=== PATIENT | male | born 1970 | race Caucasian/White ===

== ENCOUNTER 2022-05-31 19:06 | Inpatient (IN) ==
[2022-05-31] MEDS ORDERED: OPTIRAY 300 500mL IV ONE (19:22)
--- NOTE | 2022-05-31 19:30 | Emergency Department Note ---
Impression & Plan Acute CVA (cerebrovascular accident), Vertigo ED Provider Note NAME: ELIZABETH MORRISSEY AGE: 52 SEX: M : 1970 ARRIVES VIA: Ambulance INFORMANT: Patient, EMS ED PROVIDER(S): Boby Warren DO CHIEF COMPLAINT: Strokelike symptoms HPI: The patient is a 52-year-old male who presented to the emergency department for an evaluation of strokelike symptoms. The patient had an acute onset of symptoms which included dizziness nausea and difficulty ambulating. The patient felt that he was having blurry vision and some double vision. He also has an occipital headache. This began after he was lifting to propane canisters. He denies having any chest pain. He denies having any difficulty breathing. The patient does not have any history of stroke in the past. He has no history of hypertension or atrial fibrillation. The patient has had no recent traveling. He denies having any recent trauma. He does not take any anticoagulants. The patient called 911 because the onset of symptoms. The patient was made a stroke alert prior to arrival after discussion with the prehospital personnel. ROS: See above HPI for pertinent positives & negatives. A total of 10 systems reviewed and were otherwise negative. PAST MEDICAL HISTORY: See Below PAST SURGICAL HISTORY: See Below FAMILY HISTORY: See Below SOCIAL HISTORY: See Below HOME MEDICATIONS: See Below ALLERGIES: See Below VITALS: See Below PHYSICAL EXAMINATION: GENERAL: The patient is awake and alert. He is somewhat anxious appearing. EYES: The conjunctivae are injected bilaterally. The pupils are round and reactive. Nystagmus was noted in both horizontal directions. EARS, NOSE, MOUTH AND THROAT: The nose is without any evidence of any deformity. Mucous membranes are moist. Tongue is midline. NECK: The neck is nontender and supple. RESPIRATORY: Normal respiratory effort is noted there is no evidence of wheezing rhonchi or rales CARDIOVASCULAR: Regular rate and rhythm noted there no murmurs rubs or gallops normal S1 normal S2. GASTROINTESTINAL: The abdomen is soft. Abdomen is nontender. MUSCULOSKELETAL/EXTREMITIES: There is no evidence of gross deformity full range of motion is noted in the hips and shoulders. SKIN: There is no obvious evidence of any rash. There are no petechiae, pallor or cyanosis noted. NEUROLOGIC: Patient is awake alert and oriented x3 strength is symmetric patellar reflexes are 2+ bilaterally MEDICAL DECISION MAKING: Patient is a 52-year-old male who presented to the emergency department for an evaluation of strokelike symptoms. The patient was made a stroke alert prior to arrival after a prehospital notification. The patient described episodes of vertigo. He was very off balance. He had very significant symptoms. The patient had CT and CT angiography of the brain and neck in the emergency department. The patient was evaluated by the [facility] neurologist at [facility]. Given the complex nature of the presentation of a posterior circulation stroke the [facility] neurologist felt the patient would be a candidate for thrombolytics given his physical exam and his description of his symptoms. He did have a slight headache which began with the same symptoms that he presented to the emergency department for. He was treated for the headache in the emergency department. He was treated with thrombolytics in the emergency department. He was reevaluated multiple times. The patient did consent to thrombolytics and the risks and benefits of thrombolytics were discussed with the patient via the telestroke neurologist as well as myself. I discussed the patient's condition with the on-call [facility] hospitalist. They have agreed to evaluate the patient in the emergency department for further managem ent and disposition. Triage Nursing notes reviewed. Prior medical records reviewed Vital Signs: reviewed and remarkable for elevated blood pressure. Differential diagnosis: Infection, dehydration, metabolic abnormality, hypo/hyperglycemia, electrolyte disturbance, anemia, hypoxia, cardiac sources, intracerebral event, toxicologic, neurologic, as well as other pathologies. ER treatment provided: See below Diagnostics interpreted by me: ECG: EKG was obtained in the emergency department. My interpretation is sinus bradycardia 59 bpm. There is no ectopy. There is no acute ST segment abnormalities noted. Cardiac Monitoring: An order was placed for continuous cardiac monitoring. The monitor shows a rate of 64 bpm with sinus rhythm. Laboratory studies: As stated above and show below. Imaging studies: See below Consultation(s): I discussed this case with Dr. Hewitt who is on for the [facility] neurology yogi up at [facility]. I discussed this case with Dr. Rangel [facility] ED COURSE: Procedures: none Critical Care: I have personally spent greater than 45 minutes of critical care time in the direct management of this patient. This includes bedside care, interpretation of diagnostic studies, and testing, discussion with consultants, patient, and fa radha members, and other required patient management activities. This 45 minutes is in excess of all separately billable procedures. 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 Safe at Home: Yes Safety Concerns: Feels Safe At This Time caffeine: Yes Dental Care, Regularly: Yes Physical Activity Frequency: 3-4 Times per Week Seatbelt Use: always Sunscreen Use: Yes Assistive Devices: None Allergies Allergies Allergy/AdvReac Type Severity Reaction Status Date / Time No Known Allergies Allergy Verified 10/25/19 09:05 Home Meds Home Medications Medication Instructions Recorded Confirmed No Known Home Medications 05/31/22 05/31/22 Results & Data (ED) Vital Signs Vital Signs - 24 hr 05/31/22 19:25 05/31/22 19:30 05/31/22 20:00 Temperature 36.6 C 36.6 C Temperature Source Temporal Artery Scan Oral Pulse Rate 52 L Pulse Rate [Right Finger] 57 L 54 L Pulse Rhythm [Right Finger] Regular Pulse Strength [Right Finger] Normal Respiratory Rate 20 20 20 Respiratory Effort / Characteristics Non-Labored Spontaneous Respiratory Depth Normal Respiratory Pattern Regular Blood Pressure 141/84 H Blood Pressure [Right Arm] 141/84 H 124/87 Blood Pressure Mean 103 Blood Pressure Mean [Right Arm] 103 99 Blood Pressure Position Sitting Blood Pressure Position [Right Arm] Sitting Sitting Pulse Oximetry 98 98 99 Oxygen Delivery Method Room Air Room Air Room Air Sepsis Recent Fever Within 48 Hours No Sepsis New/Unexplained Change in Mental Status N/A Sepsis Action Taken by Nursing No Action Required 05/31/22 20:15 Temperature 36.5 C Temperature Source Oral Pulse Rate Pulse Rate [Right Finger] 61 Pulse Rhythm [Right Finger] Pulse Strength [Right Finger] Respiratory Rate 20 Respiratory Effort / Characteristics Non-Labored Respiratory Depth Normal Respiratory Pattern Blood Pressure Blood Pressure [Right Arm] 139/88 Blood Pressure Mean Blood Pressure Mean [Right Arm] 105 Blood Pressure Position Blood Pressure Position [Right Arm] Lying Pulse Oximetry 98 Oxygen Delivery Method Room Air Sepsis Recent Fever Within 48 Hours Sepsis New/Unexplained Change in Mental Status Sepsis Action Taken by [facility]pc Medications Current Medication List: was personally reviewed by me Laboratory Data Attestation: I reviewed the patient's lab results. Result diagrams: 06/01/22 06:01 06/01/22 06:01 Lab Results 05/31/22 05/31/22 05/31/22 Range/Units 19:20 19:20 19:20 WBC 8.93 (4.8-10.8) K/ul RBC 5.50 (4.63-6.08) M/uL Hgb 16.9 (14.0-18.0) g/dl Hct 47.6 (40.1-51.0) % MCV 86.5 (80.0-100.0) fL MCH 30.7 (25.0-34.0) pg MCHC 35.5 (32.0-36.0) g/dL RDW Std Deviation 38.7 (36.4-46.3) fL RDW Coeff of Stewart 12.4 (11.5-14.5) % Plt Count 213 (130-400) K/uL MPV 10.9 (9.4-12.4) fL Immature Gran % (Auto) 0.6 % Neut % (Auto) 70.2 % Lymph % (Auto) 19.4 % [place] % (Auto) 7.6 % Eos % (Auto) 1.9 % Baso % (Auto) 0.3 % Neut # (Auto) 6.27 (1.4-6.5) K/uL Lymph # (Auto) 1.73 (1.2-3.4) K/uL [place] # (Auto) 0.68 (0.24-0.82) K/uL Eos # (Auto) 0.17 (0-0.50) K/uL Baso # (Auto) 0.03 (0-0.2) K/uL Immature Gran # (Auto) 0.05 H (0.00-0.02) K/uL PT 11.2 (9.0-12.0) Seconds INR 1.1 (0.9-1.1) APTT 23.8 (21.0-31.0) Seconds PTT Ratio 0.9 Sodium 138 (136-145) mmol/L Potassium 3.9 (3.5-5.1) mmol/L Chloride 100 (98-107) mmol/L Carbon Dioxide 25 (21-32) mmol/L Anion Gap 13 H (3-11) BUN 18 (6-23) mg/dl Creatinine 1.12 (0.6-1.4) mg/dl Est Cr Clr Drug Dosing 94.5 ml/min Est GFR ( Amer) 87.1 ml/min Est GFR (Non-Af Amer) 75.1 ml/min BUN/Creatinine Ratio 16.1 (10-20) Glucose 100 H (70-99(Fasting)) mg/dl Calcium 9.3 (8.5-10.1) mg/dl Magnesium 1.9 (1.7-2.4) mg/dl Total Bilirubin 0.7 (0.2-1.0) mg/dl AST 14 (13-39) U/L ALT 23 (7-52) U/L Alkaline Phosphatase 62 (34-104) U/L Troponin I High Sens < 2.3 (0-20) pg/ml Total Protein 7.0 (6.0-8.3) gm/dl Albumin 4.3 (3.4-5.0) gm/dl Globulin 2.7 (2.5-4.0) gm/dl Albumin/Globulin Ratio 1.6 (0.9-2) SARS-CoV-2, RNA, NAAT (NEGATIVE) 05/31/22 Range/Units 19:32 WBC (4.8-10.8) K/ul RBC (4.63-6.08) M/uL Hgb (14.0-18.0) g/dl Hct (40.1-51.0) % MCV (80.0-100.0) fL MCH (25.0-34.0) pg MCHC (32.0-36.0) g/dL RDW Std Deviation (36.4-46.3) fL RDW Coeff of Stewart (11.5-14.5) % Plt Count (130-400) K/uL MPV (9.4-12.4) fL Immature Gran % (Auto) % Neut % (Auto) % Lymph % (Auto) % [place] % (Auto) % Eos % (Auto) % Baso % (Auto) % Neut # (Auto) (1.4-6.5) K/uL Lymph # (Auto) (1.2-3.4) K/uL [place] # (Auto) (0.24-0.82) K/uL Eos # (Auto) (0-0.50) K/uL Baso # (Auto) (0-0.2) K/uL Immature Gran # (Auto) (0.00-0.02) K/uL PT (9.0-12.0) Seconds INR (0.9-1.1) APTT (21.0-31.0) Seconds PTT Ratio Sodium (136-145) mmol/L Potassium (3.5-5.1) mmol/L Chloride (98-107) mmol/L Carbon Dioxide (21-32) mmol/L Anion Gap (3-11) BUN (6-23) mg/dl Creatinine (0.6-1.4) mg/dl Est Cr Clr Drug Dosing ml/min Est GFR ( Amer) ml/min Est GFR (Non-Af Amer) ml/min BUN/Creatinine Ratio (10-20) Glucose (70-99(Fasting)) mg/dl Calcium (8.5-10.1) mg/dl Magnesium (1.7-2.4) mg/dl Total Bilirubin (0.2-1.0) mg/dl AST (13-39) U/L ALT (7-52) U/L Alkaline Phosphatase (34-104) U/L Troponin I High Sens (0-20) pg/ml Total Protein (6.0-8.3) gm/dl Albumin (3.4-5.0) gm/dl Globulin (2.5-4.0) gm/dl Albumin/Globulin Ratio (0.9-2) SARS-CoV-2, RNA, NAAT NEGATIVE (NEGATIVE) Administered Medications Ondansetron HCl (Ondansetron Inj 2 Mg/Ml 2 Ml Vial) 4 mg IV Q6H DARIO Stop: 06/30/22 22:06 Last Admin: 06/01/22 05:08 Dose: 4 mg Documented By: Admin: 05/31/22 23:18 Dose: 4 mg Documented By: SELENE Discontinued Medications Fentanyl Citrate (Fentanyl Citrate 100 Mcg/2 Ml Vial) 50 mcg IV NOW STA Stop: 05/31/22 20:35 Last Admin: 05/31/22 23:13 Dose: Not Given Documented By: SELENE Tenecteplase 25 mg/ Syringe 5 mls @ 60 mls/min IV NOW ONE; Protocol Stop: 05/31/22 19:53 Last Admin: 05/31/22 20:00 Dose: 60 mls/min Documented By: SHARAN Co-signed By: ALEX Ioversol (Optiray 300 500ml) 120 ml IV ONCE ONE Stop: 05/31/22 19:23 Last Admin: 05/31/22 19:23 Dose: 120 ml Documented By: GHULAM Miscellaneous (Stat Iv) 1 each N/A NOW STA Stop: 05/31/22 19:43 Last Admin: 05/31/22 23:13 Dose: Not Given Documented By: SELENE Ondansetron HCl (Ondansetron Inj 2 Mg/Ml 2 Ml Vial) 4 mg IV NOW STA Stop: 05/31/22 20:35 Last Admin: 05/31/22 20:45 Dose: 4 mg Documented By: SHARAN Sodium Chloride (Sodium Chloride 0.9% 10ml Flush) 20 ml IV NOW STA Stop: 05/31/22 19:43 Last Admin: 05/31/22 20:00 Dose: 20 ml Documented By: SHARAN Imaging Data Attestation: I personally reviewed and interpreted this imaging study as follow s: My Impression: 1 view chest x-ray was obtained in the emergency department. My interpretation is no free air, no definite filtrate, heart size was normal, no acute disease. Radiologist's Impression: Chest X-Ray 05/31/22 18:56 XR chest 1V portable CLINICAL HISTORY: Stroke Like Symptoms COMPARISON STUDY: No previous studies for comparison. FINDINGS: Lung volumes are normal. Lungs are clear. There is no pneumothorax or pleural effusion. Cardiac size is normal. Mediastinal contours are normal. There is no evidence for pulmonary edema. Slight interstitial prominence is likely within normal limits. IMPRESSION: No acute cardiopulmonary findings. ACT 112: Negative or not required by law. Electronically signed by: Meliton Kyle M.D. 06/01/2022 7:40 AM Discharge Plan Visit Data Chief Complaint: Stroke Alert ED Provider: Boby Warren Discharge Problem: Acute CVA (cerebrovascular accident), Vertigo Patient Disposition: Admitted As Inpatient Discharge Instructions Interventions: ED Discharge Assessment Last Done: 05/31/22 21:13
--- NOTE | 2022-05-31 19:40 | CT Scan Report ---
UNENHANCED CT OF THE BRAIN; CT ANGIOGRAM OF THE BRAIN; CT ANGIOGRAM OF THE NECK CLINICAL HISTORY: Strokelike symptoms. COMPARISON STUDY: No priors. TECHNIQUE: Unenhanced axial CT scan of the brain is performed. Subsequently, following the IV adminis tration of 120 of Optiray 300, CT angiogram of the head and neck was performed from the aortic arch t o the vertex. Images are reviewed in the axial, sagittal, and coronal planes. 3-D MIPS images are cre ated and assessed. IV contrast was administered without complication. All measurements were calculate d based on NASCET criteria. A dose lowering technique was utilized adhering to the principles of ALA RA. CT DOSE: 1242.22 mGy.cm FINDINGS: Brain parenchyma: The brain parenchyma is normal in appearance. There is no hemorrhage, mass effect, or evidence of acute territorial ischemia by CT criteria. There is no evidence of enhancing mass lesi on on the angiogram phase images. The ventricles, sulci, and cisterns are normal in configuration. Gr ay-white matter differentiation is preserved. No extra-axial fluid collection is seen. Thoracic aorta: Visualized portions of the thoracic aorta are normal in caliber. The aortic arch demo nstrates standard 3-vessel anatomy. Right carotid arterial system: The right common carotid artery is widely patent, as are the right int ernal and external carotid arteries. Left carotid arterial system: The left common carotid artery is widely patent, as are the left internist medical doctor md al and external carotid arteries. Vertebral arteries: The vertebral arteries are widely patent bilaterally and codominant. Subclavian arteries: Widely patent bilaterally. Intracranial vasculature: The internal carotid arteries are patent at the skull base, as are the ante rior and middle cerebral arteries bilaterally. The vertebrobasilar system and posterior cerebral lucie kvng are widely patent. The vertebral arteries are codominant. There is no aneurysm, high-grade steno sis, or focal vessel cut off seen throughout the intracranial circulation. Jugular veins: Patent bilaterally. Dural sinuses: Patent. Lung apices: Partially visualized upper lobe lung parenchyma appears clear. Soft tissues: The visualized pharyngeal soft tissues are normal in appearance noting angiographic pha se technique. The oropharyngeal airway appears widely patent. The salivary and thyroid glands are nor mal in appearance. No cervical lymphadenopathy is seen. Skeletal structures: The calvarium appears intact. The cervical spine is maintained noting mild spond ylosis. No lytic or blastic lesion is seen. Orbits: The bony orbits are intact. Orbital contents are normal as visualized. Sinuses and mastoids: There is trace mucosal thickening right maxillary antrum. The remaining paranas al sinuses are clear. The mastoid air cells are well pneumatized. IMPRESSION: 1. There is no hemorrhage, mass effect, or evidence of acute territorial ischemia by CT criteria. 2. Unremarkable CT angiogram of the brain. 3. Unremarkable CT angiogram of the neck. ACT 112: Negative or not required by law. Electronically signed by: Norberto Wilson M.D. 05/31/2022 7:37 PM
[2022-05-31] MEDS ORDERED: STAT IV STA (19:42)
[2022-05-31] MEDS ORDERED: SODIUM CHLORIDE 0.9% 10ML FLUSH IV STA (19:42)
[2022-05-31 19:45] LABS: Basophils # (auto) 0.03 K/uL (0-0.2); Basophils % (auto) 0.3 %; Eosinophils # (auto) 0.17 K/uL (0-0.50); Eosinophils % (auto) 1.9 %; Hematocrit (blood only) 47.6 % (40.1-51.0); Hemoglobin 16.9 g/dl (14.0-18.0); Immature Granulocytes # (auto) 0.05 K/uL (0.00-0.02); Immature Granulocytes % (auto) 0.6 %; Lymphocytes # (auto) 1.73 K/uL (1.2-3.4); Lymphocytes % (auto) 19.4 %; Mean Corpuscular Hemoglobin 30.7 pg (25.0-34.0); Mean Corpuscular Hgb Conc 35.5 g/dL (32.0-36.0); Mean Corpuscular Volume 86.5 fL (80.0-100.0); Mean Platelet Volume 10.9 fL (9.4-12.4); Monocytes # (auto) 0.68 K/uL (0.24-0.82); Monocytes % (auto) 7.6 %; Neutrophils # (auto) 6.27 K/uL (1.4-6.5); Neutrophils % (auto) 70.2 %; Platelet Count 213 K/uL (130-400); RDW Coefficient of Variation 12.4 % (11.5-14.5); RDW Standard Deviation 38.7 fL (36.4-46.3); White Blood Count 8.93 K/ul (4.8-10.8)
[2022-05-31] MEDS ORDERED: No Aspirin within 24hrs of THROMBOLYTIC-Stroke PO SCH (19:45)
[2022-05-31] MEDS ORDERED: TENECTEPLASE 25 MG in SYRINGE 0 ML IV ONE (19:52)
[2022-05-31 19:58] LABS: INR 1.1 (0.9-1.1); Partial Thromboplastin Ratio 0.9; Partial Thromboplastin Time 23.8 Seconds (21.0-31.0); Prothrombin Time 11.2 Seconds (9.0-12.0)
[2022-05-31 20:04] LABS: Alanine Aminotransferase 23 U/L (7-52); Albumin Globulin Ratio 1.6 (0.9-2); Albumin Level 4.3 gm/dl (3.4-5.0); Alkaline Phosphatase 62 U/L (34-104); Anion Gap 13 (3-11); Aspartate Aminotransferase 14 U/L (13-39); BUN Creatinine Ratio 16.1 (10-20); Bilirubin,Total 0.7 mg/dl (0.2-1.0); Blood Urea Nitrogen 18 mg/dl (6-23); Calcium 9.3 mg/dl (8.5-10.1); Carbon Dioxide 25 mmol/L (21-32); Chloride 100 mmol/L (98-107); Creatinine Clr Calc Pharmacy 94.5 ml/min; Est GFR (African American) 87.1 ml/min; Est GFR (Non-African American) 75.1 ml/min; Globulin 2.7 gm/dl (2.5-4.0); Glucose 100 mg/dl (70-99(Fasting)); Magnesium 1.9 mg/dl (1.7-2.4); Potassium 3.9 mmol/L (3.5-5.1); Sodium 138 mmol/L (136-145)
[2022-05-31 20:10] LABS: Troponin I High Sensitivity < 2.3 pg/ml (0-20)
[2022-05-31] MEDS ORDERED: ICU PROTOCOL FOR HYPERGLYCEMIA PRN (20:28)
--- NOTE | 2022-05-31 20:28 | History & Physical Report ---
Date of Service May 31, 2022 Assessment & Plan (1) Stroke-like symptoms: Plan: This is a 52-year-old male with a history of palpitations who presents to [facility] for evaluation of acute-onset anterior R LOMAS (posterior to R eye), vertigo, ambulatory dysfunction, nausea, and distal upper extremity paraesthesias following lifting propane tanks at around ~1730, concerning for neurologic process like posterior CVA vs. complicated migraine. He received TNKase in the ED at 2000. Stroke-like Symptoms - Per patient/family: acute-onset anterior R headache (posterior to R eye), vertigo, ambulatory dysfunction, nausea, and distal upper extremity paraesthesias following lifting propane tanks at around ~1730 - Stroke Alert called: s/p receipt of TNKase in the ED at approx. 1999 - CTA-Head/Neck: No evidence of acute insult or angiographically detectable disease - DDX: At this time, cannot definitively rule-out posterior circulation CVA; however, wonder if his symptoms may also represent complicated/complex migraine; lower suspicion for intraocular, C-spine related process - Admit to ICU for neurovascular monitoring and stroke protocol - Maintain BP < 180/105 post-TNK --> PRN Labetalol on-call for elevations beyond this - Obtain MRI tomorrow AM - Check TTE, lipids, A1c - PT/OT/TOOL CRIB LEAD consulted - Consider initiation of antiplatelet and lipid-lowering RX after 24 hours if stroke seems most likely - Consider hypercoagulability/inflammatory studies if stroke seems most likely - Pain: Tylenol 1000mg - if evolves, re-evaluate to determine if patient would most benefit from typical analgesia or migraine-specific - Nausea: Zofran CODE: Full DIET: NPO until dysphagia screening, then regular PPX: Pharmacologic prophylaxis contraindicated at this time DISPO: ICU for post-TNKase monitoring History of Present Illness Primary Care Provider: Teetee Llamas MD This is a 52-year-old male with a history of palpitations who presents to [facility] for evaluation of vision changes, ambultory dysfunction, nausea, and headache. History is primarily obtained through patient's , and patient contributes intermittently. Sometime between 1730 and 1800, patient's symptoms reportedly started; at around 1800, patient reportedly stumbled into the home setting that he did not feel well, and complained of dizziness, right- sided headache, and nausea. According to his , he also demonstrated some neglect about his surroundings (for instance, he was leaning on his for support, while also asking where she was and reaching out into the distance). Patient says that he was lifting propane tanks when he felt a sudden pop on the right side of his head/upper neck, and felt a sharp stinging begin just posterior to his right eye. He said that he intermittently develop vision changes thereafter, which included diplopia and dizziness aforementioned. He al so notes that he developed numbness and tingling at his bilateral fingertips. He says that this popping sensation has happened in the past and has been associated with lightheadedness ("like when you get up too fast "), but nothing like this. Given concerns for stroke, he was brought to the emergency room for immediate evaluation, where stroke alert was called. At the time my evaluation, patient says most of his discomfort is still posterior to his right eye. He says that he continues to have some numbness and tingling at his bilateral fingertips, but not elsewhere. Dizziness is mostly go ne away, but nausea has persisted. He did vomit several times in the emergency room. 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 He reports smoking 2 packs of cigarettes each weekend since the age of 22 (~9 pack-years) alongside 1 bottle of whiskey each weekend; he does not drink during the week and has not had an alcoholic beverage for over a week and a half. He denies any use of any recreational drugs or substances. Regarding his family history, he does report multiple heart attacks and strokes on both sides; however, he does not remember exactly who right now. He does not think anybody had strokes under the age of 60, but again is not sure. He denies any known history of clotting. Regarding his history of palpitations, he reports a several day stent several months back where he felt like his heart was racing. He reportedly have a Holter monitor, which was normal. In the ED, patient was found to have normal vital signs. Laboratories were significant for normal CBC, normal coag studies, BMP showing BUN 18/creatinine 1.12, anion gap 13, COVID-negative. Head and neck imaging demonstrated no hemorrhage, mass-effect, ischemic changes; angiography not revealing of appreciable disease. ECG demonstrated normal sinus rhythm without any conduction or repolarization abnormalities. In the ED, stroke alert was called; based on review of his symptoms, TNK was given. ---- This documentation was created utilizing dictation software. As such, syntax, grammatical, and word-choice errors may be present. Notes are screened prior to submission in an attempt to reduce these errors. If there are any questions or concerns, please contact the author directly for clarification. Allergies Allergy/AdvReac Type Severity Reaction Status Date / Time No Known Allergies Allergy Verified 10/25/19 09:05 Home Medications Medication Instructions Recorded Confirmed Type No Known Home Medications 05/31/22 05/31/22 History Past Med/Surg History Surgical History No history of previous surgery Family History Grandfather Myocardial infarction Grandmother Colon cancer Uncle Abdominal aortic aneurysm Denies family history of Ovarian cancer Prostate cancer Breast cancer Social History Smoking Status: Light tobacco smoker Hx Alcohol Use: Yes Alcohol type: hard liquor Hx Substance Use: No Preferred Language: Palauan Communication Ability: Effective Beliefs That Will Affect Care: None marital status: Current Living Situation: Family 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 HEENT: NCAT. - Eyes - Sclera are white, anicteric; very slight injection in his R eye - Mouth - MMM - Neck - supple, no appreciable JVD Cardiac: Normal rate and regular rhythm; S1 and S2 present with no murmurs, rubs, or gallops. Pulmonary: Good respiratory effort with symmetric expansion of the chest. No use of accessory muscles. Lungs were clear to auscultation bilaterally with no crackles or wheezes. Abdominal: Normoactive bowel sounds. Abdomen was soft, nondistended, and non- tender to palpation. Neuro: - Cranial Nerves: CN I, IX, XIII, and X - not assessed. II - PERRL, although some injection is appreciated in the R eye. III/IV/ - EOMs WNL. No nystagmus. V - Facial sensation in tact in all three divisions; jaw opening WNL. VII - Patient is able to smile symmetrically and keep eyes close against resistance. IX - Soft palate raises equally and appropriately while saying "ah." XI - Patient is able to shrug shoulders against resistance. XII - patient is able to stick out tongue and deviate from emza-ly-[id number] appropriately. - Motor: UE - Finger, wrist, elbow, and shoulder strength is 5/5 bilaterally. LE - Hip, knee, and ankle strength is 5/5 bilaterally. - Sensation: UE and LE sensation to light touch is grossly intact bilaterally. - Ameebm-is-giod: WNL b/l. No dysmetria. Extremities: Upper and lower extremities are warm and well perfused. No peripheral edema in the lower extremities bilaterally Psych: Well-developed, well-nourished, appropriately dressed for occasion. Behavior is cooperative and appropriate. Affect is WNL. Insight is appropriate. Results & Data Results & Data ([facility]) Vital Signs (Past 12 Hours) Vital Signs Temp Pulse Pulse Resp BP BP Pulse Ox 05/31/22 20:15 36.5 C 61 20 139/88 98 05/31/22 20:00 36.6 C 54 L 20 124/87 99 05/31/22 19:30 57 L 20 141/84 H 98 05/31/22 19:25 36.6 C 52 L 20 141/84 H 98 O2 Del Method 05/31/22 20:15 Room Air 05/31/22 20:00 Room Air 05/31/22 19:30 Room Air 05/31/22 19:25 Room Air Supervising Physician Co-Signing Physician Notes Patient seen and examined, chart reviewed, case discussed with Dr. Ibarra and I agree with the assessment and plan as above. In brief, patient is a 52yo male with no significant past medical history presenting with acute onset vertigo, posterior headache, nausea. Patient presented as a Code Stroke to the ER and was given Tenecteplase 25mg at 20:00. Patient presently with improved headache. Still with vertigo worsened by movement. Had a brief episode of visual disturbance and spacial disorientation upon arrival to the MICU - stated that he felt as though he was laying on his right side and that his body was turning the right. Also felt that everything that he saw was crooked, rotated appx 90 degrees to include sideways door and slanted floor - possibly consistent with midline visual shift syndrome. Resolved after appx 10-15 minutes. On exam he is afebrile, HD stable, blood pressure 141/86 at present Skin - intact, no rashes/lesions HEENT- NC/AT, PERRL, MMM, Neck supple Heart - +S1/S2, regular, no m/r/g Lungs - CTA Abd - +BS, soft, NT/ND Ext - warm, well perfused, no clubbing/cyanosis or edema Neuro - patient is AA&O x 4, pleasant, conversive, able to answer questions and participate in exam, speech is clear and appropriate, no facial droop. CN grossly intact, no nystagmus, visual harris full to confrontation on bedside exam, sensation intact, MS 5/5 with no drift, gait not assessed. Labs and images reviewed Assessment/Plan 52yo male presenting with acute onset LOMAS, visual disturbance, nausea and vertigo following a "popping" sensation in posterior head. Patient administered tenecteplase in the ER as a Code Stroke at 20:00. Workup unremarkable thus far to include normal CT head and normal CTA -Admit to MICU for post-tPA care -BP management -Neuro checks and GCS per protocol -MRI -Repeat CT head at 24 hours post-tPA -Neuro consultation appreciated -Remainder as above Resident Activity Tracking Resident Involvement: Resident Care Provided Care Provided: [facility]
[2022-05-31] MEDS ORDERED: fentaNYL citrate 100 MCG/2 ML VIAL IV STA (20:34)
[2022-05-31] MEDS ORDERED: ONDANSETRON INJ 2 MG/ML 2 ML VIAL IV STA (20:34)
[2022-05-31] MEDS ORDERED: ACETAMINOPHEN 500 MG TAB PO PRN (22:07)
[2022-05-31] MEDS ORDERED: LABETALOL HCL IV 5 MG/ML 20ML IV PRN (22:07)
[2022-05-31] MEDS ORDERED: PHARMACIST DISCHARGE MED REC CONSULT PRN (22:07)
--- NOTE | 2022-05-31 23:02 | Critical Care Consultation ---
Date of Consultation May 31, 2022 Assessment & Plan (1) Acute CVA (cerebrovascular accident): Impression: 52-year-old male presents to the ICU with visual changes and strokelike symptoms, now s/p TNKase administration and currently admitted to ICU for 24-hour monitoring. Neuro - Acute CVA?Patient with neurological symptoms as described and HPI/exam. CT head Wo contrast and CTA head and neck unremarkable -Cannot rule out posterior CVA at this time versus complex migraine -MRI pending -TNKase administered per telestroke recommendation at 1800. Follow-up CT head at 24 hours. Monitor in ICU per protocol -Follow-up echo, A1c, lipid panel -Zofran as needed for nausea -Follow-up neurology recommendations concerning ASA/Plavix Cardiac - No cardiac history. Currently hemodynamically stable. Will allow permissive hypertension. Continuous monitoring on telemetry Respiratory - No history of pulmonary disease. Patient does smoke 2 packs/day per history. Encourage cessation. Maintain ox saturation on room air. Continuous monitoring pulse ox GI - N.p.o. RENAL/LYTES - Creatinine within normal limits, monitor routine BMPs replete electrolytes as indicated - Strict I's and O's ENDO - No history of diabetes or thyroid disease, ICU hyperglycemic protocol HEME - H&H stable, monitor for signs of bleeding. Routine CBC ID - No indication for mesh process at this time. Trend fever curve LINES/IV ACCESS - Peripheral IVs DVT PROPHYLAXIS - SCDs, hold anticoagulation in the setting of TNKase administration Thank you for allowing us to participate in the care of this patient. Please refer to my attending physician's documentation for any further recommendations. (2) Vertigo: (3) Stroke-like symptoms: History of Present Illness Attending Physician: Manuela Rangel DO History of Present Illness Patient is a 52-year-old male history of GERD, palpitations, tobacco use (2 PPD) who presents to the emergency department earlier this evening with visual changes, headache, nausea, and ambulatory dysfunction. Around 1800 patient complained of dizziness and right-sided posterior headache associated with nausea. Patient stated that he felt a pop while lifting propane tanks on the right posterior side of his head/upper neck and felt a sting behind his right eye. Patient developed diplopia and dizziness right after this. He underwent CT head without contrast and CTA head and neck which were negative for acute findings. Patient was evaluated by telestroke and decision was made to proceed with TNKase at 1999. Patient now being admitted to ICU for further management at this time per 24-hour tPA protocol. On arrival to the ICU the patient is alert and oriented. Patient states that he is still experiencing a dull throbbing headache on the right posterior and pressure behind his right eye. He also states that his vision is flipped 180 degrees. He denies any current nausea or dizziness. He denies other neurological symptoms. He currently denies any previous fevers, illness, congestion or sore throat, cough, chest pain, palpitations, shortness of breath, abdominal pain, vomiting or diarrhea. Allergies Allergy/AdvReac Type Severity Reaction Status Date / Time No Known Allergies Allergy Verified 10/25/19 09:05 Home Medications Medication Instructions Recorded Confirmed Type No Known Home Medications 05/31/22 05/31/22 History Patient History Surgical History No history of previous surgery Family History Grandfather Myocardial infarction Grandmother Colon cancer Uncle Abdominal aortic aneurysm Denies family history of Ovarian cancer Prostate cancer Breast cancer Social History Smoking Status: Light tobacco smoker Hx Alcohol Use: Yes Alcohol type: hard liquor Hx Substance Use: No Preferred Language: Occitan Communication Ability: Effective Beliefs That Will Affect Care: None marital status: Current Living Situation: Family 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 Safe at Home: Yes Safety Concerns: Feels Safe At This Time caffeine: Yes Dental Care, Regularly: Yes Physical Activity Frequency: 3-4 Times per Week Seatbelt Use: always Sunscreen Use: Yes Assistive Devices: None Review of Systems Review of Systems: All systems reviewed & are unremarkable except as noted in HPI & below Physical Exam Constitutional: WD/WN, vitals as above Eyes: Nystagmus, PERRLA ENMT: external ear and nose normal, oropharynx normal Neck: trachea midline, no thyromegaly Respiratory: normal respiratory effort, lungs clear to auscultation Cardiovascular: RRR, no murmur, no edema Heart Sounds: normal S1 and normal S2; no murmur Gastrointestinal (Abdomen): normal bowel sounds, soft, nontender, no hepatosplenomegaly Musculoskeletal: no cyanosis or clubbing, extremities motor strength 5/5 Skin: no rashes, warm and dry Neurologic: PERRL, EOMI, accommodation nl, no face palsy, no dysarthria normal touch/pain/proprioception and moves all extremities Speech / Cognition: no expressive aphasia and no receptive aphasia Motor/Sensory: no pronator drift Cranial Nerves: PERRL and EOM intact bilaterally; + nystagmus Psychiatric: A+Ox3, euthymic affect Results & Data Results & Data ([facility] [place]) Vital Signs (Past 12 Hours) Vital Signs Temp Pulse Pulse Resp BP BP Pulse Ox 05/31/22 22:00 56 L 14 148/97 H 100 05/31/22 23:00 67 20 148/90 H 97 05/31/22 22:30 64 18 151/98 H 97 05/31/22 21:45 54 L 22 144/96 H 96 05/31/22 21:30 36.5 C 59 L 22 140/96 99 05/31/22 21:30 36.5 C 59 L 22 140/96 99 05/31/22 21:15 36.6 C 52 L 20 143/89 H 99 05/31/22 21:00 36.5 C 53 L 22 139/95 96 05/31/22 20:45 36.5 C 58 L 20 146/95 H 99 05/31/22 20:30 36.5 C 55 L 18 144/97 H 100 05/31/22 20:15 36.5 C 61 20 139/88 98 05/31/22 20:00 36.6 C 54 L 20 124/87 99 05/31/22 19:30 57 L 20 141/84 H 98 05/31/22 19:25 36.6 C 52 L 20 141/84 H 98 O2 Del Method O2 Flow Rate 05/31/22 22:00 Nasal Cannula 2 05/31/22 23:00 Nasal Cannula 2 05/31/22 22:30 Nasal Cannula 2 05/31/22 21:45 Room Air 05/31/22 21:30 Room Air 05/31/22 21:30 Room Air 05/31/22 21:15 Room Air 05/31/22 21:00 Room Air 05/31/22 20:45 Room Air 05/31/22 20:30 Room Air 05/31/22 20:15 Room Air 05/31/22 20:00 Room Air 05/31/22 19:30 Room Air 05/31/22 19:25 Room Air Coding Level of Care Code 87367 Inpt Consult Level 3 Diagnoses Acute CVA (cerebrovascular accident) I63.9 Vertigo R42 Stroke-like symptoms R29.90
[2022-05-31] MEDS: ONDANSETRON INJ 2 MG/ML 2 ML VIAL IV SCH (23:18)
[2022-06-01] MEDS: ONDANSETRON INJ 2 MG/ML 2 ML VIAL IV SCH ×4 (05:08→21:20)
[2022-06-01 06:39] LABS: Basophils # (auto) 0.02 K/uL (0-0.2); Basophils % (auto) 0.3 %; Eosinophils # (auto) 0.02 K/uL (0-0.50); Eosinophils % (auto) 0.3 %; Hematocrit (blood only) 47.1 % (40.1-51.0); Hemoglobin 16.6 g/dl (14.0-18.0); Immature Granulocytes # (auto) 0.02 K/uL (0.00-0.02); Immature Granulocytes % (auto) 0.3 %; Lymphocytes # (auto) 1.55 K/uL (1.2-3.4); Mean Corpuscular Hemoglobin 30.6 pg (25.0-34.0); Mean Corpuscular Hgb Conc 35.2 g/dL (32.0-36.0); Mean Corpuscular Volume 86.9 fL (80.0-100.0); Mean Platelet Volume 11.4 fL (9.4-12.4); Monocytes # (auto) 0.64 K/uL (0.24-0.82); Monocytes % (auto) 9.1 %; Neutrophils # (auto) 4.81 K/uL (1.4-6.5); Platelet Count 201 K/uL (130-400); RDW Coefficient of Variation 12.8 % (11.5-14.5); RDW Standard Deviation 40.3 fL (36.4-46.3); Red Blood Count 5.42 M/uL (4.63-6.08); White Blood Count 7.06 K/ul (4.8-10.8)
[2022-06-01 07:28] LABS: Albumin Level 4.3 gm/dl (3.4-5.0); Bilirubin Direct 0.2 mg/dl (0-0.2); Bilirubin,Total 0.8 mg/dl (0.2-1.0); Calcium 9.2 mg/dl (8.5-10.1); Chol HDL Ratio 3.1 (0-5); Magnesium 2.3 mg/dl (1.7-2.4); Phosphorus 4.8 mg/dl (2.5-4.9); Potassium 4.7 mmol/L (3.5-5.1); Total Protein 7.2 gm/dl (6.0-8.3)
--- NOTE | 2022-06-01 07:41 | XRay Report ---
XR chest 1V portable CLINICAL HISTORY: Stroke Like Symptoms COMPARISON STUDY: No previous studies for comparison. FINDINGS: Lung volumes are normal. Lungs are clear. There is no pneumothorax or pleural effusion. Car diac size is normal. Mediastinal contours are normal. There is no evidence for pulmonary edema. Sligh t interstitial prominence is likely within normal limits. IMPRESSION: No acute cardiopulmonary findings. ACT 112: Negative or not required by law. Electronically signed by: Meliton Kyle M.D. 06/01/2022 7:40 AM
[2022-06-01 07:43] LABS: Creatinine Clr Calc Pharmacy 96.8 ml/min; Est GFR (Non-African American) 79.4 ml/min
[2022-06-01 08:32] LABS: Estimated Average Glucose 105 mg/dl; Hemoglobin A1C 5.3 % (4.5-5.6)
--- NOTE | 2022-06-01 08:53 | Magnetic Resonance Report ---
MRI OF THE BRAIN WITHOUT CONTRAST CLINICAL HISTORY: acute CVA s/p TNKase COMPARISON STUDY: Head CT and CTA of the head May 31, 2022. TECHNIQUE: Utilizing a 1.5 Beata magnet and dedicated coil, multiplanar, multiecho imaging of the bra in was performed without IV contrast. FINDINGS: Note is made of a 4.3 x 2.3 cm focus of restricted diffusion within the inferomedial aspect of the right cerebellar hemisphere. This represents an acute infarct. No hemorrhage or significant m ass effect is present. Cytotoxic edema is noted. No additional foci of acute infarction are present. Ventricular system is normal. Basal cisterns are patent. There are no extra-axial collections. Flow-v oids for the major intracranial vessels are present. Calvarial signal is within normal limits. There is no evidence for sinusitis. There is no mastoid fluid. No intracranial masses are identified on thi s unenhanced exam. IMPRESSION: Acute infarct within the inferomedial right cerebellar hemisphere, measuring 4.3 x 2.3 c m. This is within the right posterior inferior cerebellar artery distribution. No hemorrhage. No sign ificant mass effect at this time. ACT 112: Negative or not required by law. Electronically signed by: Meliton Kyle M.D. 06/01/2022 8:51 AM
--- NOTE | 2022-06-01 08:54 | Hospitalist Progress Note ---
Date of Service June 01, 2022 Assessment & Plan (1) Stroke-like symptoms: Plan: This is a 52-year-old male with a history of palpitations who presents to [facility] for evaluation of acute-onset anterior R LOMAS (posterior to R eye), vertigo, ambulatory dysfunction, nausea, and distal upper extremity paraesthesias following lifting propane tanks at around ~1730, concerning for neurologic process like posterior CVA vs. complicated migraine. He received TNKase in the ED at 2000. CVA - Per patient/family: acute-onset anterior R headache (posterior to R eye), vertigo, ambulatory dysfunction, nausea, and distal upper extremity paraesthesias following lifting propane tanks at around ~1730 - Stroke Alert called: s/p receipt of TNKase in the ED at approx. 2000 - CTA-Head/Neck: No evidence of acute insult or angiographically detectable disease - Admit to ICU for neurovascular monitoring and stroke protocol - Maintain BP < 180/105 post-TNK --> PRN Labetalol on-call for elevations beyond this - MRI brain: 4.3 x 2.3 cm focus of restricted diffusion within the inferomedial aspect of the right cerebellar hemisphere representing an acute infarct. No hemorrhage or mass-effect observed. - TTE: EF of 60 to 65%. No hypokinesis or wall motion abnormalities. - Lipid panel: LDL cholesterol 92, up from 81 a year prior. Total [id number]. - Hemoglobin A1c: 5.3. - Coagulation labs negative for coagulopathy * Complete 24 hours monitoring post TNKase * Initiate secondary prevention after 24 hours: DAPT x21 to 90 days. * Additional secondary prevention: atorvastatin 80 mg, losartan 25 mg * Smoking cessationpatient already amenable. CODE: Full DIET: Regular diet PPX: Pharmacologic prophylaxis contraindicated at this time DISPO: ICU for post-TNKase monitoring Admission and Anticipated Discharge Date Admission Date: May 31, 2022 Supervising Physician Co-Signing Physician Notes I personally examined the patient and verified all mi points of history and exam, discussed case, and agree with decision making with Dr Morrison Generally feeling better. Vision improving, has not really been up and out of bed yet, but does not notice feeling off balance at least at rest. Discussed lifestyle extensivelyit sounds like he is fairly active throughout the day, gets exercise walking his dog, gets more sedentary in the winter. Eating habits are not the best. Has already decided he is a former smokerdoes not believe that quitting will be a difficulty. Vitals noted, in general he is awake and alert pleasant no distress. HEENT normocephalic atraumatic mucous membranes moist. Breathing unlabored no accessory muscle use good effort. Skin shows no rashes no pallor or icterus. Neuro as above. Cerebellar strokemost likely atherosclerotic given his risks of male, age, family history, tobacco abuseand relative risks with his LDL, and possibly blood pressure, as well as "softer" risks of lifestyle and obesity with BMI of 30.4. That said, central embolic difficult to rule out and agree with neurology for outpatient cardiac monitoring for completeness. Med management, lifestyle change, secondary risk reduction. Otherwise as above Subjective Overnight, vision was "flipped upside down" but that resolved by the morning. Today, he reports a dull, constant infraorbital ache on the right, a similar headache at the occiput, also on the right. Otherwise, he denies dizziness, shortness of breath, chest tightness, visual disturbances, weakness, or paresthesias. Review of Systems Review of Systems: All systems reviewed & are unremarkable except as noted in HPI & below Physical Exam Physical Exam: General: Well-appearing, alert, interactive, and in no acute distress. HEENT: Normocephalic, atraumatic. EOM intact. Good conjugate gaze. Nares patent. Moist mucosal membranes. Neck: Supple. No lymphadenopathy. Normal ROM. CV: Regular rate and rhythm. Normal S1 and S2. No murmurs gallops or rubs. Respiratory: Normal respiratory effort. Lungs clear to auscultation bilaterally. No crackles, rhonchi, or wheezes. Abdomen: Soft, mildly distended abdomen. No bruits heard on auscultation. No tenderness to deep palpation. Some suprapubic discomfort noted. Extremities: Capillary refill <2 sec. 2+ dp equal bilaterally. No pedal edema. Neuro: Alert and oriented x3. Cranial nerves II through XII intact. No focal motor or sensory deficit appreciated. Skin: Clean, dry, and intact. No rashes, bruises, or erythema. Results & Data Results & Data ([facility]) Vital Signs (Past 12 Hours) Vital Signs Temp Pulse Resp BP Pulse Ox O2 Del Method O2 Flow Rate 06/01/22 08:00 36.5 C 75 16 136/75 98 Room Air 06/01/22 06:00 63 16 131/91 97 Nasal Cannula 2 06/01/22 05:00 67 16 137/92 98 Nasal Cannula 2 06/01/22 04:01 36.5 C 66 16 127/84 98 Nasal Cannula 2 06/01/22 03:30 65 16 130/87 99 Nasal Cannula 2 06/01/22 03:00 66 18 140/88 98 Nasal Cannula 2 06/01/22 02:30 64 16 137/84 98 Nasal Cannula 2 06/01/22 02:00 70 16 141/86 H 97 Nasal Cannula 2 06/01/22 01:30 69 16 136/88 98 06/01/22 01:00 64 16 125/84 98 Nasal Cannula 2 06/01/22 00:30 60 16 144/89 H 98 Nasal Cannula 2 06/01/22 00:00 36.7 C 60 16 144/95 H 97 Nasal Cannula 2 05/31/22 23:30 72 16 148/95 H 98 Nasal Cannula 2 05/31/22 22:00 56 L 14 148/97 H 100 Nasal Cannula 2 05/31/22 23:00 67 20 148/90 H 97 Nasal Cannula 2 05/31/22 22:30 64 18 151/98 H 97 Nasal Cannula 2 05/31/22 21:45 54 L 22 144/96 H 96 Room Air 05/31/22 21:30 36.5 C 59 L 22 140/96 99 Room Air 05/31/22 21:30 36.5 C 59 L 22 140/96 99 Room Air 05/31/22 21:15 36.6 C 52 L 20 143/89 H 99 Room Air 05/31/22 21:00 36.5 C 53 L 22 139/95 96 Room Air 05/31/22 20:45 36.5 C 58 L 20 146/95 H 99 Room Air Resident Activity Tracking Resident Involvement: Resident Care Provided Care Provided: Adult Hospital Medicine
--- NOTE | 2022-06-01 09:29 | Critical Care Progress Note ---
Date of Service June 01, 2022 Assessment & Plan (1) Acute CVA (cerebrovascular accident): Plan: Impression: 52-year-old male presents to the ICU with visual changes and strokelike symptoms, now s/p TNKase administration and currently admitted to ICU for 24-hour monitoring. Neuro - Acute CVAPatient with neurological symptoms as described and HPI/exam. CT head Wo contrast and CTA head and neck unremarkable -MRI reviewed -TNKase administered per telestroke recommendation at 1800. Follow-up CT head at 24 hours. Monitor in ICU per protocol -Echo reviewed, -Zofran as needed for nausea -ASA at 24 hours, Plavix deferred at this time - Close observation for cerebellar mass-effect Cardiac - No cardiac history. Currently hemodynamically stable. Respiratory - No history of pulmonary disease. Patient does smoke 2 packs/day per history. Encourage cessation. GI - N.p.o. RENAL/LYTES - Creatinine within normal limits, monitor routine BMPs replete electrolytes as indicated - Strict I's and O's ENDO - No history of diabetes or thyroid disease, ICU hyperglycemic protocol HEME - H&H stable, monitor for signs of bleeding. Routine CBC LINES/IV ACCESS - Peripheral IVs DVT PROPHYLAXIS - SCDs, hold anticoagulation until 24 hours out Stable for downgrade out of ICU at 24 hours post TNKase administration. (2) Vertigo: (3) Stroke-like symptoms: Admission and Anticipated Discharge Date Admission Date: May 31, 2022 Subjective No significant complaints. Vision has resolved headache has also resolved. Patient reports he feels a little dizzy when rapidly turning his head to the right. Not withstanding his complaints have all resolved per report. Review of Systems Review of Systems: Denies chest pain, denies shortness of breath, denies headache Physical Exam Physical Exam: General: Alert. nontoxic. Skin: Warm, dry, Head: Atraumatic Ears, nose, mouth and throat: airway patent Cardiovascular: Normal peripheral perfusion Respiratory: no respiratory distress Gastrointestinal: Non distended Musculoskeletal: No deformity Neuro: Normal [id number], normal heel mclaughlin Results & Data Results & Data ([facility]) Vital Signs (Past 12 Hours) Vital Signs Temp Pulse Resp BP Pulse Ox O2 Del Method O2 Flow Rate 06/01/22 09:00 63 16 135/89 96 Room Air 06/01/22 08:00 36.5 C 75 16 136/75 98 Room Air 06/01/22 06:00 63 16 131/91 97 Nasal Cannula 2 06/01/22 05:00 67 16 137/92 98 Nasal Cannula 2 06/01/22 04:01 36.5 C 66 16 127/84 98 Nasal Cannula 2 06/01/22 03:30 65 16 130/87 99 Nasal Cannula 2 06/01/22 03:00 66 18 140/88 98 Nasal Cannula 2 06/01/22 02:30 64 16 137/84 98 Nasal Cannula 2 06/01/22 02:00 70 16 141/86 H 97 Nasal Cannula 2 06/01/22 01:30 69 16 136/88 98 06/01/22 01:00 64 16 125/84 98 Nasal Cannula 2 06/01/22 00:30 60 16 144/89 H 98 Nasal Cannula 2 06/01/22 00:00 36.7 C 60 16 144/95 H 97 Nasal Cannula 2 05/31/22 23:30 72 16 148/95 H 98 Nasal Cannula 2 05/31/22 22:00 56 L 14 148/97 H 100 Nasal Cannula 2 05/31/22 23:00 67 20 148/90 H 97 Nasal Cannula 2 05/31/22 22:30 64 18 151/98 H 97 Nasal Cannula 2 05/31/22 21:45 54 L 22 144/96 H 96 Room Air 05/31/22 21:30 36.5 C 59 L 22 140/96 99 Room Air 05/31/22 21:30 36.5 C 59 L 22 140/96 99 Room Air Critical Care Results & Data Vital Signs (Past 12 Hours) Vital Signs Temp Pulse Resp BP Pulse Ox O2 Del Method O2 Flow Rate 06/01/22 15:00 61 16 140/90 95 Room Air 06/01/22 14:00 68 18 137/90 96 Room Air 06/01/22 13:00 76 16 132/90 96 Room Air 06/01/22 12:00 77 16 151/96 H 96 Room Air 06/01/22 11:00 68 16 147/93 H 94 Room Air 06/01/22 10:00 63 16 139/92 95 Room Air 06/01/22 09:00 63 16 135/89 96 Room Air 06/01/22 08:00 36.5 C 75 16 136/75 98 Room Air 06/01/22 06:00 63 16 131/91 97 Nasal Cannula 2 06/01/22 05:00 67 16 137/92 98 Nasal Cannula 2 06/01/22 04:01 36.5 C 66 16 127/84 98 Nasal Cannula 2 06/01/22 03:30 65 16 130/87 99 Nasal Cannula 2 Lab & Micro Results (Past 24 Hours) RBC 5.42 M/uL (4.63-6.08) 06/01/22 WBC 7.06 K/ul (4.8-10.8) 06/01/22 Hgb 16.6 g/dl (14.0-18.0) 06/01/22 Hct 47.1 % (40.1-51.0) 06/01/22 MCV 86.9 fL (80.0-100.0) 06/01/22 MCH 30.6 pg (25.0-34.0) 06/01/22 MCHC 35.2 g/dL (32.0-36.0) 06/01/22 RDW Standard Deviation 40.3 fL (36.4-46.3) 06/01/22 RDW Coefficient of Variation 12.8 % (11.5-14.5) 06/01/22 Plt Count 201 K/uL (130-400) 06/01/22 MPV 11.4 fL (9.4-12.4) 06/01/22 Neutrophils (%) (Auto) 68.0 % 06/01/22 Lymphocytes (%) (Auto) 22.0 % 06/01/22 Monocytes # (Auto) 0.64 K/uL (0.24-0.82) 06/01/22 Eosinophils # (Auto) 0.02 K/uL (0-0.50) 06/01/22 Immature Granulocyte % (Auto) 0.3 % 06/01/22 Neutrophils # (Auto) 4.81 K/uL (1.4-6.5) 06/01/22 Lymphocytes # (Auto) 1.55 K/uL (1.2-3.4) 06/01/22 Monocytes # (Auto) 0.64 K/uL (0.24-0.82) 06/01/22 Eosinophils # (Auto) 0.02 K/uL (0-0.50) 06/01/22 Basophils # (Auto) 0.02 K/uL (0-0.2) 06/01/22 Immature Granulocyte # (Auto) 0.02 K/uL (0.00-0.02) 2 Na 138 mmol/L (136-145) 06/01/22 K 4.7 mmol/L (3.5-5.1) 06/01/22 Cl 105 mmol/L (98-107) 06/01/22 CO2 25 mmol/L (21-32) 06/01/22 Anion Gap 8 (3-11) 06/01/22 BUN 16 mg/dl (6-23) 06/01/22 Creatinine 1.07 mg/dl (0.6-1.4) 06/01/22 Estimated GFR ( Amer) 92.0 ml/min 06/01/22 Estimated GFR (Non-Af Amer) 79.4 ml/min 06/01/22 BUN/Creatinine Ratio 15.0 (10-20) 06/01/22 Glu 97 mg/dl (70-99(Fasting)) 06/01/22 Ca 9.2 mg/dl (8.5-10.1) 06/01/22 Phosphorus Level 4.8 mg/dl (2.5-4.9) 06/01/22 Total Bilirubin 0.8 mg/dl (0.2-1.0) 06/01/22 Direct Bilirubin 0.2 mg/dl (0-0.2) 06/01/22 AST 15 U/L (13-39) 06/01/22 ALT 22 U/L (7-52) 06/01/22 Alkaline Phosphatase 64 U/L (34-104) 06/01/22 TP 7.2 gm/dl (6.0-8.3) 06/01/22 Albumin 4.3 gm/dl (3.4-5.0) 06/01/22 Globulin 2.7 gm/dl (2.5-4.0) 05/31/22 Albumin/Globulin Ratio 1.6 (0.9-2) 05/31/22 Mg 2.3 mg/dl (1.7-2.4) 06/01/22 06:01 Calcium Level 9.2 mg/dl (8.5-10.1) 06/01/22 06:01 Prothromb Time International Ratio 1.1 (0.9-1.1) 05/31/22 19:2 0 Diagnostic Findings (Past 24 Hours) Chest X-Ray 05/31/22 18:56 XR chest 1V portable CLINICAL HISTORY: Stroke Like Symptoms COMPARISON STUDY: No previous studies for comparison. FINDINGS: Lung volumes are normal. Lungs are clear. There is no pneumothorax or pleural effusion. Cardiac size is normal. Mediastinal contours are normal. There is no evidence for pulmonary edema. Slight interstitial prominence is likely within normal limits. IMPRESSION: No acute cardiopulmonary findings. ACT 112: Negative or not required by law. Electronically signed by: Meliton Kyle M.D. 06/01/2022 7:[address] 05/31/22 18:[address] OF THE BRAIN; CT ANGIOGRAM OF THE BRAIN; CT ANGIOGRAM OF THE NECK CLINICAL HISTORY: Strokelike symptoms. COMPARISON STUDY: No priors. TECHNIQUE: Unenhanced axial CT scan of the brain is performed. Subsequently, following the IV administration of 120 of Optiray 300, CT angiogram of the head and neck was performed from the aortic arch to the vertex. Images are reviewed in the axial, sagittal, and coronal planes. 3-D MIPS images are created and assessed. IV contrast was administered without complication. All measurements were calculated based on NASCET criteria. A dose lowering technique was utilized adhering to the principles of ALARA. CT DOSE: 1242.22 mGy.cm FINDINGS: Brain parenchyma: The brain parenchyma is normal in appearance. There is no hemorrhage, mass effect, or evidence of acute territorial ischemia by CT criter ia. There is no evidence of enhancing mass lesion on the angiogram phase images. The ventricles, sulci, and cisterns are normal in configuration. Combs-white matter differentiation is preserved. No extra-axial fluid collection is seen. Thoracic aorta: Visualized portions of the thoracic aorta are normal in caliber. The aortic arch demonstrates standard 3-vessel anatomy. Right carotid arterial system: The right common carotid artery is widely patent, as are the right internal and external carotid arteries. Left carotid arterial system: The left common carotid artery is widely patent, as are the left internal and external carotid arteries. Vertebral arteries: The vertebral arteries are widely patent bilaterally and codominant. Subclavian arteries: Widely patent bilaterally. Intracranial vasculature: The internal carotid arteries are patent at the skull base, as are the anterior and middle cerebral arteries bilaterally. The vertebrobasilar system and posterior cerebral arteries are widely patent. The vertebral arteries are codominant. There is no aneurysm, high-grade stenosis, or focal vessel cut off seen throughout the intracranial circulation. Jugular veins: Patent bilaterally. Dural sinuses: Patent. Lung apices: Partially visualized upper lobe lung parenchyma appears clear. Soft tissues: The visualized pharyngeal soft tissues are normal in appearance noting angiographic phase technique. The oropharyngeal airway appears widely patent. The salivary and thyroid glands are normal in appearance. No cervical lymphadenopathy is seen. Skeletal structures: The calvarium appears intact. The cervical spine is maintained noting mild spondylosis. No lytic or blastic lesion is seen. Orbits: The bony orbits are intact. Orbital contents are normal as visualized. Sinuses and mastoids: There is trace mucosal thickening right maxillary antrum. The remaining paranasal sinuses are clear. The mastoid air cells are well pneumatized. IMPRESSION: 1. There is no hemorrhage, mass effect, or evidence of acute territorial ischemia by CT criteria. 2. Unremarkable CT angiogram of the brain. 3. Unremarkable CT angiogram of the neck. ACT 112: Negative or not required by law. Electronically signed by: Norberto Wilson M.D. 05/31/2022 7:37 PM Head CTA 05/31/22 18:[address] OF THE BRAIN; CT ANGIOGRAM OF THE BRAIN; CT ANGIOGRAM OF THE NECK CLINICAL HISTORY: Strokelike symptoms. COMPARISON STUDY: No priors. TECHNIQUE: Unenhanced axial CT scan of the brain is performed. Subsequently, following the IV administration of 120 of Optiray 300, CT angiogram of the head and neck was performed from the aortic arch to the vertex. Images are reviewed in the axial, sagittal, and coronal planes. 3-D MIPS images are created and assessed. IV contrast was administered without complication. All measurements were calculated based on NASCET criteria. A dose lowering technique was utilized adhering to the principles of ALARA. CT DOSE: 1242.22 mGy.cm FINDINGS: Brain parenchyma: The brain parenchyma is normal in appearance. There is no hemorrhage, mass effect, or evidence of acute territorial ischemia by CT criteria. There is no evidence of enhancing mass lesion on the angiogram phase images. The ventricles, sulci, and cisterns are normal in configuration. Combs- white matter differentiation is preserved. No extra-axial fluid collection is seen. Thoracic aorta: Visualized portions of the thoracic aorta are normal in caliber. The aortic arch demonstrates standard 3-vessel anatomy. Right carotid arterial system: The right common carotid artery is widely patent, as are the right internal and external carotid arteries. Left carotid arterial system: The left common carotid artery is widely patent, as are the left internal and external carotid arteries. Vertebral arteries: The vertebral arteries are widely patent bilaterally and codominant. Subclavian arteries: Widely patent bilaterally. Intracranial vasculature: The internal carotid arteries are patent at the skull base, as are the anterior and middle cerebral arteries bilaterally. The vertebrobasilar system and posterior cerebral arteries are widely patent. The vertebral arteries are codominant. There is no aneurysm, high-grade stenosis, or focal vessel cut off seen throughout the intracranial circulation. Jugular veins: Patent bilaterally. Dural sinuses: Patent. Lung apices: Partially visualized upper lobe lung parenchyma appears clear. Soft tissues: The visualized pharyngeal soft tissues are normal in appearance noting angiographic phase technique. The oropharyngeal airway appears widely patent. The salivary and thyroid glands are normal in appearance. No cervical lymphadenopathy is seen. Skeletal structures: The calvarium appears intact. The cervical spine is maintained noting mild spondylosis. No lytic or blastic lesion is seen. Orbits: The bony orbits are intact. Orbital contents are normal as visualized. Sinuses and mastoids: There is trace mucosal thickening right maxillary antrum. The remaining paranasal sinuses are clear. The mastoid air cells are well pneumatized. IMPRESSION: 1. There is no hemorrhage, mass effect, or evidence of acute territorial ischemia by CT criteria. 2. Unremarkable CT angiogram of the brain. 3. Unremarkable CT angiogram of the neck. ACT 112: Negative or not required by law. Electronically signed by: Norberto Wilson M.D. 05/31/2022 7:37 PM Neck CTA 05/31/22 18:[address] OF THE BRAIN; CT ANGIOGRAM OF THE BRAIN; CT ANGIOGRAM OF THE NECK CLINICAL HISTORY: Strokelike symptoms. COMPARISON STUDY: No priors. TECHNIQUE: Unenhanced axial CT scan of the brain is performed. Subsequently, following the IV administration of 120 of Optiray 300, CT angiogram of the head and neck was performed from the aortic arch to the vertex. Images are reviewed in the axial, sagittal, and coronal planes. 3-D MIPS images are created and assessed. IV contrast was administered without complication. All measurements were calculated based on NASCET criteria. A dose lowering technique was utilized adhering to the principles of ALARA. CT DOSE: 1242.22 mGy.cm FINDINGS: Brain parenchyma: The brain parenchyma is normal in appearance. There is no hemorrhage, mass effect, or evidence of acute territorial ischemia by CT criter ia. There is no evidence of enhancing mass lesion on the angiogram phase images. The ventricles, sulci, and cisterns are normal in configuration. Combs-white matter differentiation is preserved. No extra-axial fluid collection is seen. Thoracic aorta: Visualized portions of the thoracic aorta are normal in caliber. The aortic arch demonstrates standard 3-vessel anatomy. Right carotid arterial system: The right common carotid artery is widely patent, as are the right internal and external carotid arteries. Left carotid arterial system: The left common carotid artery is widely patent, as are the left internal and external carotid arteries. Vertebral arteries: The vertebral arteries are widely patent bilaterally and codominant. Subclavian arteries: Widely patent bilaterally. Intracranial vasculature: The internal carotid arteries are patent at the skull base, as are the anterior and middle cerebral arteries bilaterally. The vertebrobasilar system and posterior cerebral arteries are widely patent. The vertebral arteries are codominant. There is no aneurysm, high-grade stenosis, or focal vessel cut off seen throughout the intracranial circulation. Jugular veins: Patent bilaterally. Dural sinuses: Patent. Lung apices: Partially visualized upper lobe lung parenchyma appears clear. Soft tissues: The visualized pharyngeal soft tissues are normal in appearance noting angiographic phase technique. The oropharyngeal airway appears widely patent. The salivary and thyroid glands are normal in appearance. No cervical lymphadenopathy is seen. Skeletal structures: The calvarium appears intact. The cervical spine is maintained noting mild spondylosis. No lytic or blastic lesion is seen. Orbits: The bony orbits are intact. Orbital contents are normal as visualized. Sinuses and mastoids: There is trace mucosal thickening right maxillary antrum. The remaining paranasal sinuses are clear. The mastoid air cells are well pneumatized. IMPRESSION: 1. There is no hemorrhage, mass effect, or evidence of acute territorial ischemia by CT criteria. 2. Unremarkable CT angiogram of the brain. 3. Unremarkable CT angiogram of the neck. ACT 112: Negative or not required by law. Electronically signed by: Norberto Wilson M.D. 05/31/2022 7:37 PM Brain MRI 06/01/22 06:00 MRI OF THE BRAIN WITHOUT CONTRAST CLINICAL HISTORY: acute CVA s/p TNKase COMPARISON STUDY: Head CT and CTA of the head May 31, 2022. TECHNIQUE: Utilizing a 1.5 Beata magnet and dedicated coil, multiplanar, multiecho imaging of the brain was performed without IV contrast. FINDINGS: Note is made of a 4.3 x 2.3 cm focus of restricted diffusion within the inferomedial aspect of the right cerebellar hemisphere. This represents an acute infarct. No hemorrhage or significant mass effect is present. Cytotoxic edema is noted. No additional foci of acute infarction are present. Ventricular system is normal. Basal cisterns are patent. There are no extra-axial collections. Flow-voids for the major intracranial vessels are present. Calvarial signal is within normal limits. There is no evidence for sinusitis. There is no mastoid fluid. No intracranial masses are identified on this unenhanced exam. IMPRESSION: Acute infarct within the inferomedial right cerebellar hemisphere, measuring 4.3 x 2.3 cm. This is within the right posterior inferior cerebellar artery distribution. No hemorrhage. No significant mass effect at this time. ACT 112: Negative or not required by law. Electronically signed by: Meliton Kyle M.D. 06/01/2022 8:51 AM I & O Totals 24 Hours 05/31/22 06/01/22 06/02/22 06:59 06:59 06:59 Intake Total 350 / 350 Output Total 0 / 0 Balance 350 / 350 Cumulative 05/31/22 18:50 thru 06/01/22 14:00 Intake Total 350 Output Total 0 Balance 350 RT Ventilator Mngmt (Last Documented) Ventilator Ordered Settings Respiratory Rate 16 06/01/22 15:00 Ventilator - PT Measurements Respiratory Rate 16 Coding Level of Care Code 72365 Subseq Hosp Care Lvl 3 Diagnoses Acute CVA (cerebrovascular accident) I63.9 Vertigo R42 Stroke-like symptoms R29.90
--- NOTE | 2022-06-01 09:51 | XCELERA ---
[id number]
--- NOTE | 2022-06-01 09:57 | Electrocardiogram Report ---
Test Reason : Blood Pressure : / mmHG Vent. Rate : 059 BPM Atrial Rate : 059 BPM P-R Int : 158 ms QRS Dur : 094 ms QT Int : 440 ms P-R-T Axes : 037 014 015 degrees QTc Int : 435 ms Sinus bradycardia Otherwise normal ECG When compared with ECG of 22-JAN-2016 17:38, QT has lengthened Confirmed by Saroj Nice ([id number]) on 06/01/2022 9:57:28 AM Referred By: REFERRED SELF Confirmed By:Saroj Nice
[2022-06-01] MEDS ORDERED: ACETAMINOPHEN 500 MG TAB PO PRN (13:14)
--- NOTE | 2022-06-01 13:54 | Consultation Report ---
DATE OF SERVICE: 06/01/2022 REASON FOR CONSULTATION: Stroke. HISTORY OF PRESENT ILLNESS: The patient is a 52-year-old left-handed male with no significant past medical history. On this background, on the day of admission while lifting two 25-pound objects, he noted the acute onset of a dull headache in the right occipital and right supraorbital region, vertigo, a tendency to veer to the left, nausea and tingling in both hands. The patient notes that there was some transient double vision, in that two occasions while in the hospital, the environment tilted 180 degrees. Movement exacerbated his symptoms. He is feeling much improved this morning with some minor residual headache and no other neurologic symptoms. His CTA of the head and neck were noncontributory, and CT of the head was unremarkable. MRI of the brain shows an acute right posterior inferior cerebellar artery territory infarction. There is minimal, if any, mass effect. It measures 4.3 x 2.3 cm. No hemorrhage is noted within the distribution of the vessel. As the patient came in in an appropriate timeframe, he received Tenecteplase at 1999. His vitals were noted for mild hypertension with BP max of 151/96. Labs were notable for normal white count, platelet count, PT, PTT. Nonfasting glucose was 100. His LDL was 92 and SARS screen was negative. He has otherwise been well. He has no prior history of transient ischemic attack or stroke. He has not had any recent head or neck injury. He has never had any sudden blindness, double vision, slurred speech, unilateral weakness or numbness. He has not had any head or neck trauma. 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 He has no history of ND, cancer, rheumatic fever, DVT or PE. Multiple family members had heart disease and stroke, but none in a young age. No family history of clotting disorder. The patient reports that over the last year or so that he has been mildly hypertensive in the office, but was not placed on medication. He also smokes. His echocardiogram showed normal LV size and function, EF of 60%-65%, no wall motion abnormalities, no significant valve abnormalities. No left ventricular hypertrophy. No ASD, no right to left shunt following agitated saline. Left atrial size is normal and the great vessels are unremarkable. His baseline EKG showed sinus bradycardia, otherwise normal EKG. QT has lengthened. PAST MEDICAL HISTORY: As above. PAST SURGICAL HISTORY: None. SOCIAL HISTORY: Smokes 2 packs of cigarettes a week, drinks whiskey on the weekend, works at the [employer]. FAMILY HISTORY: ND, colon cancer, abdominal aortic aneurysm. REVIEW OF SYSTEMS: As per HPI. PHYSICAL EXAMINATION: Most recent vitals are 151/96, 77, 16, 36.5, O2 sat 96%. The patient is awake and alert. Speech and language are normal. Affect appropriate. He is oriented x3. Normal naming, repetitions and 3-step commands. No right/left confusion. His pupils are equal, round, and reactive to light. The optic nerves are difficult to visualize. Tucker were full without nystagmus and motility was normal. There may be some minor right ptosis. Face is symmetric. There is normal facial sensation. Tongue is midline. Speech is nondysarthric. There are no carotid bruits, no vertebral bruits. Radial pulses are palpably intact. Psoriatic changes are noted on his knees. There is no calf swelling or tenderness. Posterior tibial pulses are intact. Strength is full in the upper and lowers. There is no drift. There is normal rapid alternating movements. There is mild dysmetria in the right upper and right lower extremity. Reflexes are symmetric. Toes are downgoing. Sensation is intact to light touch, temperature and vibration bilaterally. Gait was not tested. IMPRESSION: Right posterior inferior cerebellar artery infarction without any extracranial or intracranial stenosis. The patient is improved compared to yesterday. PLAN: Repeat CT of the head at 24 hours per protocol. Because of PICA infarction/cerebellar infarction can cause edema, I would monitor carefully for signs and symptoms of increased intracranial pressuresuch as change in MS, N, V, headache. Similarly, if the CT of the head at 24 hours shows a marked increase in edema or mass effect, I would recommend transferring the patient to a tertiary care center. This transfer would occur for monitoring and potential craniotomy for evacuation of the right cerebellar hemisphere. At 24 hours, I would start aspirin. I would not at this point start Plavix, I would probably wait about 2 days to do that, making sure that the mass effect was not increasing and the patient did not need to have a surgical procedure. Smoking cessation is advised, reduction in the use of alcohol. Statin therapy with a goal LDL of 70 or less. No antihypertensives are needed at present, but if his blood pressure remains 130/90 or higher, he should be treated with an antihypertensive. I have ordered a hypercoagulable state workup. I would recommend a Zio patch as an outpatient. The patient should see us in followup post-discharge. Job ID: [id number] TIANNA
[2022-06-01] MEDS ORDERED: OLMESARTAN MEDOXOMIL 20 MG TAB PO SCH (14:00)
--- NOTE | 2022-06-01 18:15 | Billing Data ---
Date of Service June 01, 2022 Coding Level of Care Code 23490 Subseq Hosp Care Lvl 3
[2022-06-01] MEDS: ATORVASTATIN 40 MG TAB PO SCH (18:30)
--- NOTE | 2022-06-01 22:38 | CT Scan Report ---
CT head/brain wo con CLINICAL HISTORY: 24 hour post tPA Technique: Contiguous axial CT images of the head were acquired from the base of the skull to the vineet caty without intravenous contrast administration. Images were viewed in brain, subdural and bone [facility]. Automated dose lowering techniques and/or adjustment according to patient size were utilized for this exam. Comparison: Comparison is made to CT head 05/31/2022 and MRI brain 06/01/2022 Findings: Evolutionary changes in right cerebellar infarct, more conspicuous than on prior CT exam. No evidence of intracranial hemorrhage is seen. There is mild mass effect upon the fourth ventricle is with edith roximately 4 mm midline shift. Imaged portions of the paranasal sinuses and mastoid air cells are clear. The orbits appear normal. There are no acute fractures of the calvaria or scalp swelling. Impression: Interval evolutionary changes of right cerebellar infarct with mild edema and midline shift. No evide nce of hemorrhagic transformation. ACT 112: Negative or not required by law. Electronically signed by: Duane Velasco M.D. 06/01/2022 10:36 PM
[2022-06-02 06:08] LABS: Basophils # (auto) 0.04 K/uL (0-0.2); Basophils % (auto) 0.5 %; Eosinophils # (auto) 0.18 K/uL (0-0.50); Eosinophils % (auto) 2.3 %; Hematocrit (blood only) 47.8 % (40.1-51.0); Hemoglobin 16.6 g/dl (14.0-18.0); Immature Granulocytes # (auto) 0.02 K/uL (0.00-0.02); Immature Granulocytes % (auto) 0.3 %; Lymphocytes # (auto) 2.65 K/uL (1.2-3.4); Lymphocytes % (auto) 33.7 %; Mean Corpuscular Hemoglobin 30.4 pg (25.0-34.0); Mean Corpuscular Hgb Conc 34.7 g/dL (32.0-36.0); Mean Corpuscular Volume 87.5 fL (80.0-100.0); Mean Platelet Volume 11.1 fL (9.4-12.4); Monocytes # (auto) 0.74 K/uL (0.24-0.82); Monocytes % (auto) 9.4 %; Neutrophils # (auto) 4.23 K/uL (1.4-6.5); Neutrophils % (auto) 53.8 %; Platelet Count 227 K/uL (130-400); RDW Coefficient of Variation 12.8 % (11.5-14.5); RDW Standard Deviation 40.4 fL (36.4-46.3); Red Blood Count 5.46 M/uL (4.63-6.08); White Blood Count 7.86 K/ul (4.8-10.8)
[2022-06-02] MEDS: ONDANSETRON INJ 2 MG/ML 2 ML VIAL IV SCH ×2 (06:16→10:57)
[2022-06-02 06:45] LABS: Albumin Level 4.2 gm/dl (3.4-5.0); BUN Creatinine Ratio 18.6 (10-20); Bilirubin Direct 0.1 mg/dl (0-0.2); Bilirubin,Total 0.6 mg/dl (0.2-1.0); Calcium 8.9 mg/dl (8.5-10.1); Creatinine Clr Calc Pharmacy 101.6 ml/min; Est GFR (African American) 97.5 ml/min; Est GFR (Non-African American) 84.1 ml/min; Magnesium 2.1 mg/dl (1.7-2.4); Phosphorus 3.4 mg/dl (2.5-4.9); Potassium 3.9 mmol/L (3.5-5.1); Total Protein 6.9 gm/dl (6.0-8.3)
[2022-06-02] MEDS: ATORVASTATIN 40 MG TAB PO SCH (07:38)
[2022-06-02] MEDS ORDERED: OLMESARTAN MEDOXOMIL 20 MG TAB PO SCH (09:00)
--- NOTE | 2022-06-02 09:46 | Critical Care Progress Note ---
Date of Service June 02, 2022 Assessment & Plan (1) Acute CVA (cerebrovascular accident): Plan: Impression: 52-year-old male presents to the ICU with visual changes and strokelike symptoms, now s/p TNKase administration and currently admitted to ICU for 24-hour monitoring. Neuro - Acute CVAPatient with neurological symptoms as described and HPI/exam. CT head Wo contrast and CTA head and neck unremarkable -MRI reviewed -TNKase administered per telestroke recommendation at 1800. -Follow-up CT head pending, mild shift on previous CT. -Echo reviewed, -Zofran as needed for nausea -ASA 81mg daily , Plavix deferred at this time - Close observation for cerebellar mass-effect Cardiac - No cardiac history. Currently hemodynamically stable. Respiratory - No history of pulmonary disease. Patient does smoke 2 packs/day per history. Encourage cessation. GI - N.p.o. RENAL/LYTES - Creatinine within normal limits, monitor routine BMPs replete electrolytes as indicated - Strict I's and O's ENDO - No history of diabetes or thyroid disease, ICU hyperglycemic protocol HEME - H&H stable, monitor for signs of bleeding. Routine CBC LINES/IV ACCESS - Peripheral IVs DVT PROPHYLAXIS - SCDs, patient ambulatory status no indication for chemical prophylaxis D/W Neurology: concern for worsening edema, d/w [facility] for possible transfer D/W [facility] [place] [facility], Neurology, CCM: Donald. Donald accepting in transfer for concern of herniation syndrome should cytotoxic edema continue to increase. (2) Vertigo: (3) Stroke-like symptoms: Admission and Anticipated Discharge Date Admission Date: May 31, 2022 Supervising Physician Co-Signing Physician Notes I have personally spent 50 minutes of critical care time in the direct management of this patient. This is a life/limb threatening event. This includes time spent evaluating patient, direct bedside care, chart review, placing orders, interpretation of diagnostic studies, discussion with consultants, patient, and/or family members regarding treatment decisions, as well as other required patient management activities. This time is exclusive of all separately billable procedures, and teaching time and separate from and in addition to any other critical care service time. Subjective No significant plaints. Denies chest pain mild head pressure no kandy headache. No dizziness no palpitations Review of Systems Review of Systems: As per the HPI Physical Exam Physical Exam: General: Alert. nontoxic. Skin: Warm, dry, Head: Atraumatic Ears, nose, mouth and throat: airway patent Cardiovascular: Normal peripheral perfusion Respiratory: no respiratory distress Gastrointestinal: Non distended Musculoskeletal: No deformity Neuro: Normal [id number], normal heel mclaughlin Results & Data Results & Data ([facility]) Vital Signs (Past 12 Hours) Vital Signs Temp Pulse Resp BP Pulse Ox O2 Del Method 06/02/22 06:00 55 L 16 121/86 92 Room Air 06/02/22 05:00 61 16 121/78 93 Room Air 06/02/22 04:00 37.1 C 62 18 123/72 93 Room Air 06/02/22 03:00 59 L 16 120/73 93 Room Air 06/02/22 02:00 56 L 16 116/66 93 Room Air 06/02/22 01:00 61 15 122/87 95 Room Air 06/02/22 00:00 36.8 C 60 16 118/82 94 Room Air 06/01/22 23:00 63 16 125/88 95 Room Air 06/01/22 22:00 61 16 134/95 94 Room Air Critical Care Results & Data Vital Signs (Past 12 Hours) Vital Signs Temp Pulse Pulse Resp BP BP Pulse Ox 06/02/22 12:00 70 33 H 94 06/02/22 12:00 126/88 06/02/22 11:00 64 21 98 06/02/22 11:00 143/94 H 06/02/22 10:49 69 16 95 06/02/22 10:49 132/89 06/02/22 10:03 154/101 H 06/02/22 10:03 68 20 91 06/02/22 10:02 69 15 97 06/02/22 12:00 68 06/02/22 09:30 68 18 88 L 06/02/22 09:00 76 21 95 06/02/22 09:00 130/85 06/02/22 08:30 66 21 92 06/02/22 08:00 70 16 95 06/02/22 08:00 135/92 06/02/22 07:45 72 17 94 06/02/22 07:45 136/93 06/02/22 07:30 71 16 94 06/02/22 07:00 55 L 16 94 06/02/22 07:00 131/91 06/02/22 06:48 73 27 H 96 06/02/22 06:00 55 L 16 121/86 92 06/02/22 05:00 61 16 121/78 93 06/02/22 04:00 37.1 C 62 18 123/72 93 06/02/22 03:00 59 L 16 120/73 93 O2 Del Method 06/02/22 12:00 06/02/22 12:00 06/02/22 11:00 06/02/22 11:00 06/02/22 10:49 06/02/22 10:49 06/02/22 10:03 06/02/22 10:03 06/02/22 10:02 06/02/22 12:00 06/02/22 09:30 06/02/22 09:00 06/02/22 09:00 06/02/22 08:30 06/02/22 08:00 06/02/22 08:00 06/02/22 07:45 06/02/22 07:45 06/02/22 07:30 06/02/22 07:00 06/02/22 07:00 06/02/22 06:48 06/02/22 06:00 Room Air 06/02/22 05:00 Room Air 06/02/22 04:00 Room Air 06/02/22 03:00 Room Air Lab & Micro Results (Past 24 Hours) RBC 5.46 M/uL (4.63-6.08) 06/02/22 WBC 7.86 K/ul (4.8-10.8) 06/02/22 Hgb 16.6 g/dl (14.0-18.0) 06/02/22 Hct 47.8 % (40.1-51.0) 06/02/22 MCV 87.5 fL (80.0-100.0) 06/02/22 MCH 30.4 pg (25.0-34.0) 06/02/22 MCHC 34.7 g/dL (32.0-36.0) 06/02/22 RDW Standard Deviation 40.4 fL (36.4-46.3) 06/02/22 RDW Coefficient of Variation 12.8 % (11.5-14.5) 06/02/22 Plt Count 227 K/uL (130-400) 06/02/22 MPV 11.1 fL (9.4-12.4) 06/02/22 Neutrophils (%) (Auto) 53.8 % 06/02/22 Lymphocytes (%) (Auto) 33.7 % 06/02/22 Monocytes # (Auto) 0.74 K/uL (0.24-0.82) 06/02/22 Eosinophils # (Auto) 0.18 K/uL (0-0.50) 06/02/22 Immature Granulocyte % (Auto) 0.3 % 06/02/22 Neutrophils # (Auto) 4.23 K/uL (1.4-6.5) 06/02/22 Lymphocytes # (Auto) 2.65 K/uL (1.2-3.4) 06/02/22 Monocytes # (Auto) 0.74 K/uL (0.24-0.82) 06/02/22 Eosinophils # (Auto) 0.18 K/uL (0-0.50) 06/02/22 Basophils # (Auto) 0.04 K/uL (0-0.2) 06/02/22 Immature Granulocyte # (Auto) 0.02 K/uL (0.00-0.02) 2 Na 137 mmol/L (136-145) 06/02/22 K 3.9 mmol/L (3.5-5.1) 06/02/22 Cl 107 mmol/L (98-107) 06/02/22 CO2 23 mmol/L (21-32) 06/02/22 Anion Gap 7 (3-11) 06/02/22 BUN 19 mg/dl (6-23) 06/02/22 Creatinine 1.02 mg/dl (0.6-1.4) 06/02/22 Estimated GFR ( Amer) 97.5 ml/min 06/02/22 Estimated GFR (Non-Af Amer) 84.1 ml/min 06/02/22 BUN/Creatinine Ratio 18.6 (10-20) 06/02/22 Glu 104 mg/dl (70-99(Fasting)) H 06/02/22 Ca 8.9 mg/dl (8.5-10.1) 06/02/22 Phosphorus Level 3.4 mg/dl (2.5-4.9) 06/02/22 Total Bilirubin 0.6 mg/dl (0.2-1.0) 06/02/22 Direct Bilirubin 0.1 mg/dl (0-0.2) 06/02/22 AST 12 U/L (13-39) L 06/02/22 ALT 20 U/L (7-52) 06/02/22 Alkaline Phosphatase 60 U/L (34-104) 06/02/22 TP 6.9 gm/dl (6.0-8.3) 06/02/22 Albumin 4.2 gm/dl (3.4-5.0) 06/02/22 Mg 2.1 mg/dl (1.7-2.4) 06/02/22 05:17 Calcium Level 8.9 mg/dl (8.5-10.1) 06/02/22 05:17 Diagnostic Findings (Past 24 Hours) Head CT 06/01/22 19:00 CT head/brain wo con CLINICAL HISTORY: 24 hour post tPA Technique: Contiguous axial CT images of the head were acquired from the base of the skull to the vertex without intravenous contrast administration. Images were viewed in brain, subdural and bone windows. Automated dose lowering techniques and/or adjustment according to patient size were utilized for this exam. Comparison: Comparison is made to CT head 05/31/2022 and MRI brain 06/01/2022 Findings: Evolutionary changes in right cerebellar infarct, more conspicuous than on prior CT exam. No evidence of intracranial hemorrhage is seen. There is mild mass effect upon the fourth ventricle is with approximately 4 mm midline shift. Imaged portions of the paranasal sinuses and mastoid air cells are clear. The orbits appear normal. There are no acute fractures of the calvaria or scalp swelling. Impression: Interval evolutionary changes of right cerebellar infarct with mild edema and midline shift. No evidence of hemorrhagic transformation. ACT 112: Negative or not required by law. Electronically signed by: Duane Velasco M.D. 06/01/2022 10:[address] 06/02/22 08:48 CT OF THE HEAD WITHOUT CONTRAST CLINICAL HISTORY: 12 hr fu r pica inf, r/o incr mass effect 4th COMPARISON STUDY: Head CT and MRI of the brain June 01, 2022. CT DOSE: 537.48 mGy.cm TECHNIQUE: Helical axial images of the head were obtained without IV contrast. Automated exposure control was utilized for the study. A dose lowering tech nique was utilized adhering to the principles of ALARA. FINDINGS: No acute intracranial hemorrhage is present. Note is made of increased conspicuity of the acute infarct within the inferomedial right cerebellar hemisphere which measures 4.5 x 2.4 cm in extent. Mass effect has increased with moderate to marked effacement of the fourth ventricle which has significantly increased since prior CT. There is no evidence for hydrocephalus at this time. No additional infarcts are noted. IMPRESSION: Increased conspicuity of the acute right PICA territory infarct. Increase in mass effect with moderate to marked effacement of the fourth ventricle. No hydrocephalus. No hemorrhagic conversion. Continued short-term follow-up CT is recommended. ACT 112: Negative or not required by law. Electronically signed by: Meliton Kyle M.D. 06/02/2022 10:21 AM I & O Totals 24 Hours 06/01/22 06/02/22 06/03/22 06:59 06:59 06:59 Intake Total 600 / 600 550 / 550 Output Total 0 / 0 Balance 600 / 600 550 / 550 Cumulative 05/31/22 18:50 thru 06/02/22 13:39 Intake Total 1150 Output Total 0 Balance 1150 RT Ventilator Mngmt (Last Documented) Ventilator Ordered Settings Respiratory Rate 33 06/02/22 12:00 Ventilator - PT Measurements Respiratory Rate 33 Coding Level of Care Code Critical Care 1st 30-74 mins Diagnoses Acute CVA (cerebrovascular accident) I63.9 Vertigo R42 Stroke-like symptoms R29.90
[2022-06-02] MEDS ORDERED: ASPIRIN 81 MG ECTAB PO SCH (10:00)
--- NOTE | 2022-06-02 10:22 | CT Scan Report ---
CT OF THE HEAD WITHOUT CONTRAST CLINICAL HISTORY: 12 hr fu r pica inf, r/o incr mass effect 4th COMPARISON STUDY: Head CT and MRI of the brain June 01, 2022. CT DOSE: 537.48 mGy.cm TECHNIQUE: Helical axial images of the head were obtained without IV contrast. Automated exposure con trol was utilized for the study. A dose lowering technique was utilized adhering to the principles o f ALARA. FINDINGS: No acute intracranial hemorrhage is present. Note is made of increased conspicuity of the a cute infarct within the inferomedial right cerebellar hemisphere which measures 4.5 x 2.4 cm in exten t. Mass effect has increased with moderate to marked effacement of the fourth ventricle which has sig nificantly increased since prior CT. There is no evidence for hydrocephalus at this time. No addition al infarcts are noted. IMPRESSION: Increased conspicuity of the acute right PICA territory infarct. Increase in mass effect with moderate to marked effacement of the fourth ventricle. No hydrocephalus. No hemorrhagic convers ion. Continued short-term follow-up CT is recommended. ACT 112: Negative or not required by law. Electronically signed by: Meliton Kyle M.D. 06/02/2022 10:21 AM
[2022-06-02] MEDS ORDERED: ONDANSETRON INJ 2 MG/ML 2 ML VIAL IV PRN (10:31)
--- NOTE | 2022-06-02 10:56 | Hospitalist Progress Note ---
Date of Service June 02, 2022 Assessment & Plan (1) Stroke-like symptoms: Plan: This is a 52-year-old male with a history of palpitations who presents to [facility] for evaluation of acute-onset anterior R LOMAS (posterior to R eye), vertigo, ambulatory dysfunction, nausea, and distal upper extremity paraesthesias following lifting propane tanks at around ~1730, concerning for neurologic process like posterior CVA vs. complicated migraine. He received TNKase in the ED at 2000. CVA - Per patient/family: acute-onset anterior R headache (posterior to R eye), vertigo, ambulatory dysfunction, nausea, and distal upper extremity paraesthesias following lifting propane tanks at around ~1730 - Stroke Alert called: s/p receipt of TNKase in the ED at approx. 2000 - CTA-Head/Neck: No evidence of acute insult or angiographically detectable disease - Admit to ICU for neurovascular monitoring and stroke protocol - Maintain BP < 180/105 post-TNK --> PRN Labetalol on-call for elevations beyond this - MRI brain: 4.3 x 2.3 cm focus of restricted diffusion within the inferomedial aspect of the right cerebellar hemisphere representing an acute infarct. No hemorrhage or mass-effect observed. - TTE: EF of 60 to 65%. No hypokinesis or wall motion abnormalities. - Lipid panel: LDL cholesterol 92, up from 81 a year prior. Total [id number]. - Hemoglobin A1c: 5.3. - Coagulation labs negative for coagulopathy * Complete 24 hours monitoring post TNKase * Initiate secondary prevention after 24 hours: DAPT x21 to 90 days. * Additional secondary prevention: atorvastatin 80 mg, losartan 25 mg * Smoking cessationpatient already amenable. CODE: Full DIET: Regular diet PPX: Pharmacologic prophylaxis contraindicated at this time DISPO: ICU for post-TNKase monitoring Admission and Anticipated Discharge Date Admission Date: May 31, 2022 Subjective No acute events overnight. Patient sitting in chair comfortably watching television upon arrival. He denies headache, eye pain, shortness of breath, chest tightness chest tightness, or dizziness. Review of Systems Review of Systems: All systems reviewed & are unremarkable except as noted in HPI & below Physical Exam Physical Exam: General: Well-appearing, alert, interactive, and in no acute distress. HEENT: Normocephalic, atraumatic. EOM intact. Good conjugate gaze. Nares patent. Moist mucosal membranes. Neck: Supple. No lymphadenopathy. Normal ROM. CV: Regular rate and rhythm. Normal S1 and S2. No murmurs gallops or rubs. Respiratory: Normal respiratory effort. Lungs clear to auscultation bilaterally. No crackles, rhonchi, or wheezes. Abdomen: Soft, nondistended abdomen. No bruits heard on auscultation. No tenderness to deep palpation. No guarding or rebound. Extremities: Capillary refill <2 sec. 2+ dp equal bilaterally. No pedal edema. Neuro: Alert and oriented x3. Skin: Clean, dry, and intact. No rashes, bruises, or erythema. Results & Data Results & Data ([facility]) Vital Signs (Past 12 Hours) Vital Signs Temp Pulse Pulse Resp BP BP Pulse Ox 06/02/22 09:30 68 18 88 L 06/02/22 09:00 76 21 95 06/02/22 09:00 130/85 06/02/22 08:30 66 21 92 06/02/22 08:00 70 16 95 06/02/22 08:00 135/92 06/02/22 07:45 72 17 94 06/02/22 07:45 136/93 06/02/22 07:30 71 16 94 06/02/22 07:00 55 L 16 94 06/02/22 07:00 131/91 06/02/22 06:48 73 27 H 96 06/02/22 06:00 55 L 16 121/86 92 06/02/22 05:00 61 16 121/78 93 06/02/22 04:00 37.1 C 62 18 123/72 93 06/02/22 03:00 59 L 16 120/73 93 06/02/22 02:00 56 L 16 116/66 93 06/02/22 01:00 61 15 122/87 95 06/02/22 00:00 36.8 C 60 16 118/82 94 06/01/22 23:00 63 16 125/88 95 O2 Del Method 06/02/22 09:30 06/02/22 09:00 06/02/22 09:00 06/02/22 08:30 06/02/22 08:00 06/02/22 08:00 06/02/22 07:45 06/02/22 07:45 06/02/22 07:30 06/02/22 07:00 06/02/22 07:00 06/02/22 06:48 06/02/22 06:00 Room Air 06/02/22 05:00 Room Air 06/02/22 04:00 Room Air 06/02/22 03:00 Room Air 06/02/22 02:00 Room Air 06/02/22 01:00 Room Air 06/02/22 00:00 Room Air 06/01/22 23:00 Room Air
--- NOTE | 2022-06-02 14:12 | Progress Notes ---
DATE OF SERVICE: 06/02/2022. 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 Echocardiogram did not show a PFO and was unremarkable. There is no atrial enlargement and the patient's baseline EKG was sinus bradycardia. The patient is approxim ately 36 hours out from tenecteplase. His followup CT of the head noncontrast performed at 1900 on 0 06/01/2022, and reviewed by myself shows interval evolutionary changes of the right cerebellar infarct with mild edema and midline shift of 4 mm. No evidence of hemorrhagic transformation. A repeat was done this morning at approximately 8:00 a.m. as a 12-hour followup. I have reviewed the image s. Increased conspicuity of the acute right PICA infarct with increased mass effect with moderate to marked effacement of the fourth ventricle. No hemorrhagic transformation and no hydrocephalus. Con tinued short-term radiographic followup. The patient denies headache, double vision, nausea, vomitin g, unsteadiness, incontinence, new weakness, new numbness or double vision. He has a mild ongoing ri ght occipital headache. VITAL SIGNS: Blood pressure 126/88, pulse 70, respirations 33, temperature 37.1, satting 94% on room air. OBJECTIVE: The patient is awake and alert. Speech and language are normal and affect is appropriate . Pupils are equal, round and reactive to light. There is no papilledema. There is normal motility without nystagmus. Normal visual harris. There may be some minor right ptosis and a mild flattenin g of the left nasolabial fold. Tongue is midline. Motor is 5/5, no drift. Normal rapid alternating movements. Symmetric reflexes, downgoing toes. Mild dysmetria on nfoerf-nh-svhy on the right, nilda inal dysdiadochokinesia with the right hand. Ggnq-bl-tbip is normal. His gait is unremarkable. Ini tial tandem, he fell to the left, but then was remarkable. Romberg was negative. 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 The patient is cli nically stable, but imaging shows increased mass effect on the 4th ventricle without hydrocephalus. The patient this morning was 36 hours out from onset of symptoms and tenecteplase. Aspirin has been restarted, but not dual antiplatelet therapy as to decrease risk of bleeding need a procedure. I have discussed the patient's care with primary care team as well as Dr. Davila, the goal umpire. We will push the patient's images over to the [employer] system. Dr. Davila will discuss with neur osurgery whether he should be transferred out of caution for potential increased intracranial pressur e as maximum swelling peaks on day 3. He is currently asymptomatic. If we do not transfer, we will continue close radiologic followup. Continue aspirin. Agree with statin with a goal LDL of 70 or less. Continue cardiac monitoring. Th e patient should have a Zio as an outpatient. The patient has been by his own report mildly hyperten deny as an outpatient. I would not lower blood pressure at this time, but we will need to determine where his baseline blood pressure is and potentially treat if it is over 130/90. Smoking cessation i s advised and more moderate use of alcohol use is advised. I would continue to keep the patient unde r ICU care. We will follow with you. Job ID: [id number]
[2022-06-02] MEDS ORDERED: STROKE PATIENT DISCHARGE STA (16:38)
--- NOTE | 2022-06-02 17:40 | Billing Data ---
Date of Service June 02, 2022 Coding Level of Care Code D/C DAY MANAGEMENT <30 MINS
--- NOTE | 2022-06-02 19:26 | Discharge Summary ---
Date of Service June 02, 2022 Admission HPI Per Admitting Provider This is a 52-year-old male with a history of palpitations who presents to [facility] for evaluation of vision changes, ambultory dysfunction, nausea, and headache. History is primarily obtained through patient's , and patient contributes intermittently. Sometime between 1730 and 1800, patient's symptoms reportedly started; at around 1800, patient reportedly stumbled into the home setting that he did not feel well, and complained of dizziness, right- sided headache, and nausea. According to his , he also demonstrated some neglect about his surroundings (for instance, he was leaning on his for support, while also asking where she was and reaching out into the distance). Patient says that he was lifting propane tanks when he felt a sudden pop on the right side of his head/upper neck, and felt a sharp stinging begin just posterior to his right eye. He said that he intermittently develop vision changes thereafter, which included diplopia and dizziness aforementioned. He also notes that he developed numbness and tingling at his bilateral fingertips. He says that this popping sensation has happened in the past and has been associated with lightheadedness ("like when you get up too fast "), but nothing like this. Given concerns for stroke, he was brought to the emergency room for immediate evaluation, where stroke alert was called. At the time my evaluation, patient says most of his discomfort is still posterior to his right eye. He says that he continues to have some numbness and tingling at his bilateral fingertips, but not elsewhere. Dizziness is mostly gone away, but nausea has persisted. He did vomit several times in the emergency room. 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 He reports smoking 2 packs of cigarettes each weekend since the age of 22 (~9 pack-years) alongside 1 bottle of whiskey each weekend; he does not drink during the week and has not had an alcoholic beverage for over a week and a half. He denies any use of any recreational drugs or substances. Regarding his family history, he does report multiple heart attacks and strokes on both sides; however, he does not remember exactly who right now. He does not think anybody had strokes under the age of 60, but again is not sure. He denies any known history of clotting. Regarding his history of palpitations, he reports a several day stent several months back where he felt like his heart was racing. He reportedly have a Holter monitor, which was normal. In the ED, patient was found to have normal vital signs. Laboratories were significant for normal CBC, normal coag studies, BMP showing BUN 18/creatinine 1.12, anion gap 13, COVID-negative. Head and neck imaging demonstrated no hemorrhage, mass-effect, ischemic changes; angiography not revealing of appreciable disease. ECG demonstrated normal sinus rhythm without any conduction or repolarization abnormalities. In the ED, stroke alert was called; based on review of his symptoms, TNK was given. ---- This documentation was created utilizing dictation software. As such, syntax, grammatical, and word-choice errors may be present. Notes are screened prior to submission in an attempt to reduce these errors. If there are any questions or concerns, please contact the author directly for clarification. Admission Exam Per Admitting Provider General: 52-year old male who is alert, oriented, and appears in no acute distress. HEENT: NCAT. - Eyes - Sclera are white, anicteric; very slight injection in his R eye - Mouth - MMM - Neck - supple, no appreciable JVD Cardiac: Normal rate and regular rhythm; S1 and S2 present with no murmurs, rubs, or gallops. Pulmonary: Good respiratory effort with symmetric expansion of the chest. No use of accessory muscles. Lungs were clear to auscultation bilaterally with no crackles or wheezes. Abdominal: Normoactive bowel sounds. Abdomen was soft, nondistended, and non- tender to palpation. Neuro: - Cranial Nerves: CN I, IX, XIII, and X - not assessed. II - PERRL, although some injection is appreciated in the R eye. III/IV/ - EOMs WNL. No nystagmus. V - Facial sensation in tact in all three divisions; jaw opening WNL. VII - Patient is able to smile symmetrically and keep eyes close against resistance. IX - Soft palate raises equally and appropriately while saying "ah." XI - Patient is able to shrug shoulders against resistance. XII - patient is able to stick out tongue and deviate from rizv-ul-jzvn appropriately. - Motor: UE - Finger, wrist, elbow, and shoulder strength is 5/5 bilaterally. LE - Hip, knee, and ankle strength is 5/5 bilaterally. - Sensation: UE and LE sensation to light touch is grossly intact bilaterally. - Czqkqt-wo-sbvv: WNL b/l. No dysmetria. Extremities: Upper and lower extremities are warm and well perfused. No peripheral edema in the lower extremities bilaterally Psych: Well-developed, well-nourished, appropriately dressed for occasion. Behavior is cooperative and appropriate. Affect is WNL. Insight is appropriate. Principal Diagnosis CVA Discharge Exam General: Well-appearing, alert, interactive, and in no acute distress. HEENT: Normocephalic, atraumatic. EOM intact. Good conjugate gaze. Nares patent. Moist mucosal membranes. Neck: Supple. No lymphadenopathy. Normal ROM. CV: Regular rate and rhythm. Normal S1 and S2. No murmurs gallops or rubs. Respiratory: Normal respiratory effort. Lungs clear to auscultation bilaterally. No crackles, rhonchi, or wheezes. Abdomen: Soft, nondistended abdomen. No bruits heard on auscultation. No tenderness to deep palpation. No guarding or rebound. Extremities: Capillary refill <2 sec. 2+ dp equal bilaterally. No pedal edema. Neuro: Alert and oriented x3. Skin: Clean, dry, and intact. No rashes, bruises, or erythema. Discharge Data Allergies Allergy/AdvReac Type Severity Reaction Status Date / Time No Known Allergies Allergy Verified 10/25/19 09:05 Consultations 05/31/22 20:21 ED Decision to Admit Stat 05/31/22 20:28 Consult Cord Maker Routine 05/31/22 22:07 Consult Neurology Routine Ordered Studies 05/31/22 18:56 CT angio head w con Stat CT angio neck with con Stat CT head/brain wo con Stat 06/01/22 06:00 MR brain wo con Routine 06/01/22 19:00 CT head/brain wo con DAILY 06/02/22 08:48 CT head/brain wo con Urgent Hospital Course (1) Stroke-like symptoms: Patient is a 53-year-old man with no significant past medical history save for a history of palpitations, who presented for evaluation of an acute onset right- sided infraorbital headache, ambulatory dysfunction, and upper extremity paresthesias. Symptoms were concerning for possible neurologic process (posterior CVA) vs complicated migraine so he was admitted to the ICU for further management per stroke protocol. Initial head CT without contrast was negative. He subsequently received TNKase approximately 2-1/2 hours after his symptoms started. MRI brain the following day showed a 4.3 x 2.3 cm focus of restricted diffusion within the inferomedial aspect of the right cerebellar hemisphere representing an acute infarct. TTE was negative (EF60 to 65% without hypokinesis or wall motion abnormality). Hemoglobin A1c was 5.3. Total cholesterol was 152, though with elevated LDL cholesterol (92, up from 81 a year ago). Coagulopathy labs were ordered and are still pending. He was started on secondary therapy (olmesartan, atorvastatin, aspirin) and was observed for 24 hours post TNKase therapy. Repeat head CT (standard post TNKase hemorrhage rule out) the following morning showed a 4.5 x 2.4 cm acute infarct of the right inferomedial cerebellar hemisphere with increased mass-effect and midline shift, a significant change from the initial head CT. In contrast to the CT findings, patient appeared to be clinically improving. After further consultation with neurosurgery, decision was made to transfer patient to an acute care hospital for continued management. Total Time Total Time Spent Total Time Spent (In Minutes): <30 Discharge Plan Discharge Items Patient Disposition: Transfer Acute Care Hospital Reason For Visit: ACUTE CVA, S/P TNKASE Discharge Diagnosis: CVA status post TNKase Activity: Per Instructions section Non-emergency contact: Primary Care Provider Call non-emergency contact if: you have any medication questions and your symptoms worsen Follow-up/Referrals: Teetee Llamas MD [Primary Care Provider] - Diet: Regular Addtl Attending Provider Instructions: (1) Stroke-like symptoms: Plan: This is a 52-year-old male with a history of palpitations who presents to [facility] for evaluation of acute-onset anterior R LOMAS (posterior to R eye), vertigo, ambulatory dysfunction, nausea, and distal upper extremity paraesthesias following lifting propane tanks at around ~1730, concerning for neurologic process like posterior CVA vs. complicated migraine. He received TNKase in the ED at 1999. CVA - Per patient/family: acute-onset anterior R headache (posterior to R eye), vertigo, ambulatory dysfunction, nausea, and distal upper extremity paraesthesias following lifting propane tanks at around ~1730 - Stroke Alert called:s/p receipt of TNKase in the ED at approx. 2000 - CTA-Head/Neck: No evidence of acute insult or angiographically detectable disease - Admit to ICU for neurovascular monitoring and stroke protocol - Maintain BP < 180/105 post-TNK --> PRN Labetalol on-call for elevations beyond this - MRI brain:4.3 x 2.3 cm focus of restricted diffusion within the inferomedial aspect of the right cerebellar hemisphere representing an acute infarct. No hemorrhage or mass-effect observed. - TTE: EF of 60 to 65%. No hypokinesis or wall motion abnormalities. - Lipid panel: LDL cholesterol 92, up from 81 a year prior. Total [id number]. - Hemoglobin A1c: 5.3. - Coagulation labs negative for coagulopathy -Post TNKase CT head showed acute infarct measuring 4.5 x 2.4 cm within the inferomedial right cerebellar hemisphere with increased mass-effect and moderate/marked ventricular shift. * Complete 24 hours monitoring post TNKase * Initiate secondary prevention after 24 hours: ASA x21 to 90 days. Held off on Plavix due to concern for bleed on repeat CT head. * Additional secondary prevention: atorvastatin 80 mg, losartan 25 mg * Smoking cessationpatient already amenable. CODE: Full DIET: Regular diet PPX: Pharmacologic prophylaxis contraindicated at this time DISPO: transfer to tertiary care facility Pending Studies at Discharge: No Stand-Alone Forms: Medications to Prevent Stroke, My [facility] Skilled Items Patient informed of condition?: Yes DNR: No Discharge Level of Care: Other Communicable Disease: No Discharge Prognosis: Stable Lines: None Urinary Catheter: No Medications and DC Order Prescriptions: New atorvastatin 40 mg Tablet 80 mg PO QAM 30 Days Qty: 60 0RF olmesartan 20 mg Tablet 20 mg PO QAM 30 Days Qty: 30 0RF Discharge Orders: Discharge Order (Routine); Ordered 06/02/22 Ordered By: Michelet No Admission Data Admit Date/Time: 05/31/22 20:28 Attending Provider: Dieudonne Townsend Admit Provider: Dieudonne Ibarra Primary Care Provider: Teetee Llamas Other Providers: Manuela Rangel ; Alex Velázquez ; Aubrey Gill ; Darvin Marrufo ; Rosy Cordoba ; Jaylin Simpson ; Yuniel Tobar ; Jaylin Urias ; David Akhtar ; Elisa Cast ; Santos Solis ; Nakia Kendall ; Marylou Jamison Other Interventions: Discharge Summary Assessment (RN) Last Done: 06/02/22 16:54 Supervising Physician Co-Signing Physician Notes I personally examined the patient and verified all mi points of history and exam, discussed case, and agree with decision making with Dr Morrison. Feeling well. No unsteadiness. Visual changes have improved. That said, due to CT findings with mass-effect, case was reviewed by neurosurgery who felt he would be appropriate for transfer. This was arranged by ICU staff. Vitals noted, in general he is awake and alert pleasant no distress. HEENT normocephalic atraumatic mucous membranes moist. Breathing unlabored no accessory muscle use good effort. Skin shows no rashes no pallor or icterus. Neuro as above. Cerebellar strokemost likely atherosclerotic given his risks of male, age, family history, tobacco abuseand relative risks with his LDL, and possibly blood pressure, as well as "softer" risks of lifestyle and obesity with BMI of 30.4. That said, central embolic difficult to rule out and agree with neurology for outpatient cardiac monitoring for completeness. Med management, lifestyle change, secondary risk reduction. For now transfer to facility with neurosurg kirk due to intracranial edema Otherwise as above Resident Activity Tracking Resident Involvement: Resident Care Provided Care Provided: Adult Hospital Medicine
[2022-06-04 23:56] LABS: Anti Cardiolipin Ab IgG <2.0 GPL-U/mL; Anti Cardiolipin Ab IgM <2.0 MPL-U/mL; Protein S Functional(Activity) 134 % normal (70-150)
[2022-06-07 00:42] LABS: Anti-Thrombin III Activity 140 % normal (80-135); B2 Glycoprotein IgG <2.0 U/mL (<20.0); B2 Glycoprotein IgM <2.0 U/mL (<20.0); PTT LA Screen 33 sec (<=40)
[2022-06-08 12:47] LABS: Factor 5 Mutation NEGATIVE
== END 2022-06-02 16:10 | disposition short-term general hospital (02) | DRG 61 ==
LOC: ED 19:06 → 1E 20:28 → SUATTDRO 20:28 → 1E 21:13